=== PATIENT | female | born 1935 | race Caucasian/White ===

== ENCOUNTER 2019-05-13 10:27 | Observation (INO) | payer OTHER ==
[2019-05-13 11:52] LABS: Absolute Lymphocytes (CBC) 1.6 K/uL (0.7-4.9); Basophils % 0.9 % (0-1.3); Hematocrit 42.2 % (36.0-45.0); Lymphocytes % 20.9 % (15.3-44.8); MPV 8.4 fL (7.6-11.3); Protime INR 1.02; RBC Red Blood Cell Count 4.78 M/uL (3.86-4.86)
[2019-05-13 12:11] LABS: Urine Blood NEGATIVE (NEG); Urine Glucose NEGATIVE (NEG); Urine Protein NEGATIVE (NEG); Urine Specific Gravity 1.015 (1.005-1.030)
--- NOTE | 2019-05-13 12:20 | RAD REPORT ---
EXAM DESCRIPTION: [place] Single View05/13/2019 12:01 pm CLINICAL HISTORY: cough COMPARISON: 2013 FINDINGS: The lungs appear clear of acute infiltrate. The heart is mildly enlarged. Aorta is tortuous/ectatic IMPRESSION: No acute abnormalities displayed
[2019-05-13 12:38] LABS: ALT/SGPT 26 U/L (12-78); AST/SGOT 19 U/L (15-37); Albumin 3.6 g/dL (3.4-5.0); Alkaline Phosphatase 30 U/L (45-117); BUN Blood Urea Nitrogen 14 mg/dL (7-18); Bicarbonate 33 mmol/L (21-32); Bilirubin Direct 0.2 mg/dL (0-0.2); Bilirubin Total 0.6 mg/dL (0.2-1.0); Glucose Level 97 mg/dL (74-106); Magnesium 2.1 mg/dL (1.8-2.4); NT PRO-BNP 397 pg/mL (<450); Potassium 4.2 mmol/L (3.5-5.1); Protein, Total 7.5 g/dL (6.4-8.2); Sodium Level 143 mmol/L (136-145); Troponin (Emerg Dept Use Only) < 0.02 ng/mL (0.0-0.045)
[2019-05-13] MEDS ORDERED: AMLODIPINE 5 MG TAB ONE (12:38)
[2019-05-13] MEDS ORDERED: HYDRALAZINE HCL 20 MG/ML VIAL ONE ×2 (12:38→16:55)
--- NOTE | 2019-05-13 12:43 | EDPHYS ---
Physician Documentation [facility] Name: Ольга Cantrell Age: 83 yrs Sex: Female : 1935 Arrival Date: 05/13/2019 Time: 10:28 Bed 27 Private MD: Maggie Smith R ED Physician Parmjit Henderson HPI: 05/13 12:34 This 83 yrs old Female presents to ER via Ambulatory with complaints of High kylah Blood Pressure. 12:34 The patient has elevated blood pressure and discovered this at home. Onset: The kylah symptoms/episode began/occurred 3 day(s) ago. Modifying factors: The symptoms are aggravated by activity, The symptoms are alleviated by remaining still. Associated signs and symptoms: The patient has no apparent associated signs or symptoms. Severity of symptoms: At its worst the blood pressure was mild, in the emergency department the blood pressure is unchanged. The patient has experienced similar episodes in the past, a few times. Historical: - Allergies: 10:38 Sulfa (Sulfonamide Antibiotics); hb - Home Meds: 10:38 lisinopril 40 mg Oral tab 1 tab twice a day [Active]; Coreg 3.125 mg Oral tab 1 tab hb daily [Active]; bumetanide 1 mg Oral tab 1 tab once daily [Active]; Fish Oil oral oral [Active]; Xanax 0.5 mg oral tab [Active]; Vitamin D3 oral oral [Active]; Vitamin K Sub-Q [Active]; - PMHx: 11:28 Hypertension; tw2 - PSHx: 10:38 Cholecystectomy; Hysterectomy; back sx; leaky aortic valve; Bladder suspension; hb pancreatic duct stent; adhesion removal; - Immunization history:: Adult Immunizations up to date. - Social history:: Smoking status: Patient/guardian denies using tobacco. - Ebola Screening: : No symptoms or risks identified at this time. - Family history:: not pertinent. ROS: 12:34 Constitutional: Negative for fever, chills, and weight loss, Eyes: Negative for injury, kylah pain, redness, and discharge, ENT: Negative for injury, pain, and discharge, Neck: Negative for injury, pain, and swelling, Respiratory: Negative for shortness of breath, cough, wheezing, and pleuritic chest pain, Abdomen/GI: Negative for abdominal pain, nausea, vomiting, diarrhea, and constipation, Back: Negative for injury and pain, : Negative for injury, bleeding, discharge, and swelling, MS/Extremity: Negative for injury and deformity, Skin: Negative for injury, rash, and discoloration, Neuro: Negative for headache, weakness, numbness, tingling, and seizure, Psych: Negative for depression, anxiety, suicide ideation, homicidal ideation, and hallucinations, Allergy/Immunology: Negative for hives, rash, and allergies, Endocrine: Negative for neck swelling, polydipsia, polyuria, polyphagia, and marked weight changes, Hematologic/Lymphatic: Negative for swollen nodes, abnormal bleeding, and unusual bruising. 12:34 Cardiovascular: Positive for chest pain, of the chest. Exam: 12:34 Constitutional: This is a well developed, well nourished patient who is awake, alert, kylah and in no acute distress. Head/Face: Normocephalic, atraumatic. Eyes: Pupils equal round and reactive to light, extra-ocular motions intact. Lids and lashes normal. Conjunctiva and sclera are non-icteric and not injected. Cornea within normal limits. Periorbital areas with no swelling, redness, or edema. ENT: Nares patent. No nasal discharge, no septal abnormalities noted. Tympanic membranes are normal and external auditory canals are clear. Oropharynx with no redness, swelling, or masses, exudates, or evidence of obstruction, uvula midline. Mucous membranes moist. Neck: Trachea midline, no thyromegaly or masses palpated, and no cervical lymphadenopathy. Supple, full range of motion without nuchal rigidity, or vertebral point tenderness. No Meningismus. Chest/axilla: Normal chest wall appearance and motion. Nontender with no deformity. No lesions are appreciated. Cardiovascular: Regular rate and rhythm with a normal S1 and S2. No gallops, murmurs, or rubs. Normal PMI, no JVD. No pulse deficits. Respiratory: Lungs have equal breath sounds bilaterally, clear to auscultation and percussion. No rales, rhonchi or wheezes noted. No increased work of breathing, no retractions or nasal flaring. Abdomen/GI: Soft, non-tender, with normal bowel sounds. No distension or tympany. No guarding or rebound. No evidence of tenderness throughout. Back: No spinal tenderness. No costovertebral tenderness. Full range of motion. Skin: Warm, dry with normal turgor. Normal color with no rashes, no lesions, and no evidence of cellulitis. MS/ Extremity: Pulses equal, no cyanosis. Neurovascular intact. Full, normal range of motion. Neuro: Awake and alert, GCS 15, oriented to person, place, time, and situation. Cranial nerves II-XII grossly intact. Motor strength 5/5 in all extremities. Sensory grossly intact. Cerebellar exam normal. Normal gait. Psych: Awake, alert, with orientation to person, place and time. Behavior, mood, and affect are within normal limits. Vital Signs: 10:38 BP 203 / 103; Pulse 63; Resp 16; Temp 98.3; Pulse Ox 100% on R/A; Weight 83.91 kg; hb Height 5 ft. 4 in. (162.56 cm); Pain 09/05; 11:31 BP 169 / 112; Pulse 59; Resp 14; Pulse Ox 97% on R/A; tw2 12:02 BP 211 / 100; Pulse 58; Resp 17; Pulse Ox 98% on R/A; tw2 13:13 BP 184 / 97; Pulse 72; Resp 19; Pulse Ox 99% on R/A; tw2 13:44 BP 180 / 87; Pulse 76; Resp 16; Pulse Ox 98% ; lt1 10:38 Body Mass Index 31.75 (83.91 kg, 162.56 cm) hb 11:31 provider notified. tw2 MDM: 10:41 Patient medically screened. [facility] 05/13 11:05 Order name: Basic Metabolic Panel; Complete Time: 12:41 [facility] 05/13 11:05 Order name: CBC with Diff; Complete Time: 12:32 [facility] 05/13 11:05 Order name: LFT's; Complete Time: 12:41 [facility] 05/13 11:05 Order name: Magnesium; Complete Time: 12:41 [facility] 05/13 11:05 Order name: NT PRO-BNP; Complete Time: 12:41 [facility] 05/13 11:05 Order name: PT-INR; Complete Time: 12:32 [facility] 05/13 11:05 Order name: Troponin (emerg Dept Use Only); Complete Time: 12:41 [facility] 05/13 11:05 Order name: XRAY Chest (1 view); Complete Time: 12:32 [facility] 05/13 11:51 Order name: Urine Dipstick--Ancillary (enter results); Complete Time: 12:32 05/13 12:41 Order name: Urine Culture [facility] 05/13 11:05 Order name: EKG; Complete Time: 11:06 [facility] 05/13 11:05 Order name: Cardiac monitoring; Complete Time: 11:47 [facility] 05/13 11:05 Order name: EKG - Nurse/Tech; Complete Time: 11:48 [facility] 05/13 11:05 Order name: IV Saline Lock; Complete Time: 11:47 [facility] 05/13 11:05 Order name: Labs collected and sent; Complete Time: 11:47 [facility] 05/13 11:05 Order name: O2 Per Protocol; Complete Time: 11:24 [facility] 05/13 11:05 Order name: O2 Sat Monitoring; Complete Time: 11:24 [facility] 05/13 11:05 Order name: Urine Dipstick-Ancillary (obtain specimen); Complete Time: 11:47 [facility] Administered Medications: 12:40 Drug: Norvasc 10 mg Route: PO; tw2 13:13 Follow up: Response: No adverse reaction tw2 12:42 Drug: hydrALAZINE 5 mg Route: IV; Rate: per protocol; Site: right antecubital; tw2 12:44 Follow up: Response: No adverse reaction tw2 12:44 Follow up: IV Status: Completed infusion tw2 12:58 Drug: Rocephin 1 grams Route: IV; Rate: per protocol; Site: right antecubital; tw2 13:03 Follow up: Response: No adverse reaction; IV Status: Completed infusion tw2 12:59 Drug: hydrALAZINE 10 mg Route: PO; tw2 13:13 Follow up: Response: No adverse reaction tw2 Disposition: 05/13/19 12:40 Hospitalization ordered by Shell Ramirez for Inpatient Admission. Preliminary diagnosis are Essential (primary) hypertension, Chest pain, unspecified, Thoracic aortic aneurysm, without rupture. - Bed requested for Telemetry/MedSurg (Inpatient). - Status is Inpatient Admission. tw2 - Condition is Fair. - Problem is new. - Symptoms have improved. UTI on Admission? Yes Signatures: Dispatcher [employer] EDMS Diana Nieves Corey, MD MD cha Baxter, Heather, RN RN hb Barrera, Tessa, RN RN tw2 Corrections: (The following items were deleted from the chart) 14:34 12:40 Hospitalization Ordered by Shell Ramirez MD for Inpatient Admission. Preliminary bd diagnosis is Essential (primary) hypertension; Chest pain, unspecified; Thoracic aortic aneurysm, without rupture. Bed requested for Telemetry/MedSurg (Inpatient). Status is Inpatient Admission. Condition is Fair. Problem is new. Symptoms have improved. UTI on Admission? Yes. kylah 16:13 14:34 05/13/2019 12:40 Hospitalization Ordered by Shell Ramirez MD for Inpatient tw2 Admission. Preliminary diagnosis is Essential (primary) hypertension; Chest pain, unspecified; Thoracic aortic aneurysm, without rupture. Bed requested for Telemetry/MedSurg (Inpatient). Status is Inpatient Admission. Condition is Fair. Problem is new. Symptoms have improved. UTI on Admission? Yes. bd
--- NOTE | 2019-05-13 12:43 | ER ---
Nurse's Notes [facility] Name: Ольга Cantrell Age: 83 yrs Sex: Female : 1935 Arrival Date: 05/13/2019 Time: 10:28 Bed 27 Private MD: Maggie Smith R Diagnosis: Essential (primary) hypertension;Chest pain, unspecified;Thoracic aortic aneurysm, without rupture Presentation: 05/13 10:34 Presenting complaint: Patient states: "My blood pressure has been running high and I hb have been feeling crazy and I always have chest pressure but I fell like it is worse today." Home BP 170/90. Transition of care: patient was not received from another setting of care. Onset of symptoms was May 13, 2019. Risk Assessment: Do you want to hurt yourself or someone else? Patient reports no desire to harm self or others. Initial Sepsis Screen: Does the patient meet any 2 criteria? No. Patient's initial sepsis screen is negative. Does the patient have a suspected source of infection? No. Patient's initial sepsis screen is negative. Care prior to arrival: None. 10:34 Method Of Arrival: Ambulatory hb 10:34 Acuity: NORM 3 hb Historical: - Allergies: 10:38 Sulfa (Sulfonamide Antibiotics); hb - Home Meds: 10:38 lisinopril 40 mg Oral tab 1 tab twice a day [Active]; Coreg 3.125 mg Oral tab 1 tab hb daily [Active]; bumetanide 1 mg Oral tab 1 tab once daily [Active]; Fish Oil oral oral [Active]; Xanax 0.5 mg oral tab [Active]; Vitamin D3 oral oral [Active]; Vitamin K Sub-Q [Active]; - PMHx: 11:28 Hypertension; tw2 - PSHx: 10:38 Cholecystectomy; Hysterectomy; back sx; leaky aortic valve; Bladder suspension; hb pancreatic duct stent; adhesion removal; - Immunization history:: Adult Immunizations up to date. - Social history:: Smoking status: Patient/guardian denies using tobacco. - Ebola Screening: : No symptoms or risks identified at this time. - Family history:: not pertinent. Screenin:28 Abuse screen: Denies threats or abuse. Nutritional screening: No deficits noted. tw2 Tuberculosis screening: No symptoms or risk factors identified. Fall Risk Secondary diagnosis (15 points) impaired mobility. Assessment: 10:40 General: Appears in no apparent distress. obese, well groomed, Behavior is calm, tw2 cooperative, appropriate for age. Pain: Denies pain. Neuro: Level of Consciousness is awake, alert, obeys commands, Oriented to person, place, time, situation. Cardiovascular: Heart tones S1 S2 Patient's skin is warm and dry. Respiratory: Airway is patent Respiratory effort is even, unlabored, Respiratory pattern is regular, symmetrical, Breath sounds are clear bilaterally. GI: No signs and/or symptoms were reported involving the gastrointestinal system. Abdomen is round non-distended, obese, Bowel sounds present X 4 quads. : No signs and/or symptoms were reported regarding the genitourinary system. EENT: No signs and/or symptoms were reported regarding the EENT system. Derm: No signs and/or symptoms reported regarding the dermatologic system. Skin is fragile, is thin. Musculoskeletal: Range of motion: intact in all extremities. 11:29 Reassessment: Patient appears in no apparent distress at this time. No changes from tw2 previously documented assessment. Patient and/or family updated on plan of care and expected duration. Pain level reassessed. Patient is alert, oriented x 3, equal unlabored respirations, skin warm/dry/pink. 12:28 Reassessment: provider at bedside at this time. Reassessment: Patient appears in no tw2 apparent distress at this time. No changes from previously documented assessment. Patient and/or family updated on plan of care and expected duration. Pain level reassessed. Patient is alert, oriented x 3, equal unlabored respirations, skin warm/dry/pink. 13:13 Reassessment: Patient appears in no apparent distress at this time. No changes from tw2 previously documented assessment. Patient and/or family updated on plan of care and expected duration. Pain level reassessed. Patient is alert, oriented x 3, equal unlabored respirations, skin warm/dry/pink. Vital Signs: 10:38 BP 203 / 103; Pulse 63; Resp 16; Temp 98.3; Pulse Ox 100% on R/A; Weight 83.91 kg; hb Height 5 ft. 4 in. (162.56 cm); Pain 09/05; 11:31 BP 169 / 112; Pulse 59; Resp 14; Pulse Ox 97% on R/A; tw2 12:02 BP 211 / 100; Pulse 58; Resp 17; Pulse Ox 98% on R/A; tw2 13:13 BP 184 / 97; Pulse 72; Resp 19; Pulse Ox 99% on R/A; tw2 13:44 BP 180 / 87; Pulse 76; Resp 16; Pulse Ox 98% ; lt1 10:38 Body Mass Index 31.75 (83.91 kg, 162.56 cm) hb 11:31 provider notified. tw2 ED Course: 10:28 Patient arrived in ED. as 10:29 Maggie Smith MD is Private Physician. as 10:36 Triage completed. hb 10:38 Arm band placed on. hb 10:38 Placed in gown. Bed in low position. Adult w/ patient. bed side commode at bedside as tw2 pt states "i have to go often because of this water pill im taking". ekg monitor on. Pulse ox on. NIBP on. Warm blanket given. 10:41 Tessa Barrera, CHERI is Primary Nurse. tw2 10:41 Parmjit Henderson MD is Attending Physician. kylah 11:38 Inserted saline lock: 22 gauge in right antecubital area, using aseptic technique. tw2 Blood collected. Missed attempt(s): 22 gauge in left antecubital area. by Tech. Alondra Bleeding controlled, band aid applied, catheter tip intact. Missed attempt(s): 22 gauge in left antecubital area. per Tech. Alondra Bleeding controlled, band aid applied, catheter tip intact. 11:53 EKG done, by traffic survey technician. reviewed by Parmjit Henderson MD. at1 12:07 XRAY Chest (1 view) In Process Unspecified. EDMS 12:39 Shell Ramirez MD is Hospitalizing Provider. kylah 15:30 No provider procedures requiring assistance completed. Patient admitted, IV remains in tw2 place. Administered Medications: 12:40 Drug: Norvasc 10 mg Route: PO; tw2 13:13 Follow up: Response: No adverse reaction tw2 12:42 Drug: hydrALAZINE 5 mg Route: IV; Rate: per protocol; Site: right antecubital; tw2 12:44 Follow up: Response: No adverse reaction tw2 12:44 Follow up: IV Status: Completed infusion tw2 12:58 Drug: Rocephin 1 grams Route: IV; Rate: per protocol; Site: right antecubital; tw2 13:03 Follow up: Response: No adverse reaction; IV Status: Completed infusion tw2 12:59 Drug: hydrALAZINE 10 mg Route: PO; tw2 13:13 Follow up: Response: No adverse reaction tw2 Outcome: 12:40 Decision to Hospitalize by Provider. kylah 15:30 Admitted to Med/surg accompanied by nurse, accompanied by tech, via wheelchair, room tw2 201, with chart, Report called to cheri stewart 15:30 Condition: stable 15:30 Instructed on the need for admit. 16:13 Patient left the ED. tw2 Signatures: Dispatcher [employer] EDMS Parmjit Henderson MD MD cha Martinez, Amelia as Gonzales, Amanda, cross enterprise integrator EKG Tat1 Rosy Roper RN RN Tessa Barrera RN RN tw2 Alondra Valdez lt1 Corrections: (The following items were deleted from the chart) 11:47 11:31 Pulse 59bpm; Resp 14bpm; Pulse Ox 97% RA; tw2 tw2
[2019-05-13] MEDS ORDERED: HYDRALAZINE HCL 10 MG TABLET ONE (12:54)
[2019-05-13] MEDS ORDERED: CEFTRIAXONE/SWI 1gm 1 GM/10 ML SYR ONE (12:54)
[2019-05-13 16:31] VITALS: BMI 30.9
[2019-05-13] MEDS ORDERED: HYDRALAZINE HCL 20 MG/ML VIAL IV PRN (16:43)
[2019-05-13] MEDS ORDERED: NITROGLYCERIN 0.4 MG/TAB SL PRN (16:43)
[2019-05-13] MEDS ORDERED: ACETAMINOPHEN 500 MG TAB PO PRN (16:43)
[2019-05-13] MEDS ORDERED: MORPHINE 2 MG/ML SYR IV PRN (16:43)
[2019-05-13] MEDS: ENOXAPARIN 40 MG/0.4 ML SQ SCH (17:01)
[2019-05-13] MEDS ORDERED: ALPRAZOLAM 0.5 MG TABLET PO SCH (21:00)
[2019-05-13] MEDS: LISINOPRIL 20 MG TAB PO SCH (22:40)
[2019-05-13] MEDS: CARVEDILOL 3.125 MG TAB PO SCH (22:41)
--- NOTE | 2019-05-14 03:03 | HP ---
Date of Admission: 05/13/2019 Code Status: Full. Chief Complaint: Chest pain, elevated blood pressure. History Of Present Illness: The patient is an 83-year-old female with past medical history of hypert ension, not well controlled; lymphedema, on Bumex, who has been in her usual state of health until se veral days prior to admission when the patient reports worsening blood pressure higher than usual. 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 Patient has been taking her medications faithfully and her medication was recently increased. She wa s to take 40 mg of lisinopril 3 times a day. Patient also reported some chest tightness, stating steven t there is an elephant sitting on her chest. Denies any shortness of breath, nausea, vomiting, diaph oresis, or palpitations. Patient's symptoms are constant, moderate, progressively worsening. Theref ore, she came into the ER. In the ER, her vital signs showed a blood pressure of 210/117. She was g iven hydralazine 5 mg IV, 10 mg p.o. and Norvasc. Blood pressure improved to the 170s. Patient was then referred for admission. When seen in the ER, she was awake, alert, oriented x3, in some mild di stress. Workup revealed negative troponin level. Kidney function was normal. White blood cell coun t was also normal. EKG did not show any acute changes. Her chest x-ray was clear. Past Medical History: Hypertension, chronic lymphedema. Past Surgical History: Cholecystectomy, hysterectomy, back surgery, knee surgery, leaky aortic valve , bladder suspension, history of stent in the pancreatic duct, adhesions removal. Allergies: SULFA DRUGS. Medications: List reviewed. Social History: Patient denies any tobacco use, alcohol use, or illicit drug use. Patient is indepe ndent in her activities of daily living. , lives at home. Does not use any assistive ambulat ory devices. Family History: Father had lung cancer and hypertension. Review of Systems: Ten-point system reviewed, negative except as per HPI. Physical Examination: Vital Signs: Blood pressure 203/103, pulse 63, respirations 16, temperature 98.3, O2 of 100% on room air. General: Awake, alert, oriented x3. Elderly female, in some mild distress due to pain. HEENT: Normocephalic, atraumatic. PERRLA. EOMI. Moist mucous membranes. Oropharynx is clear. Co njunctiva is anicteric. Neck: Supple. No JVD. Trachea midline. CV: S1, S2. Regular rate and rhythm. Peripheral pulses present. Respiratory: Moving air well bilaterally. No wheezing or stridor. No use of accessory muscles. Gastrointestinal: Abdomen is soft, nontender, nondistended. Positive bowel sounds. No guarding or rigidity. Extremities: No clubbing or cyanosis. Patient has chronic lymphedema of bilateral upper and lower e xtremities. No calf tenderness. Neuro: Cranial nerves 2 through 12 intact grossly. No focal neurological deficit. Speech is normal . Skin: No rashes. Normal skin turgor. Psych: Mood is okay. Affect is full. Insight and judgment are good. Laboratory Data: Sodium 143, potassium 4.2, chloride 104, CO2 of 33, BUN 14, creatinine 0.89, glucos e 97, calcium 9.5, magnesium 2.1. Troponin less than 0.02. BNP 397. WBC 7.7, H and H 14.6 and 42.2 , platelets 210. INR 1.02. UA, negative nitrite, trace leukocyte esterase. Urine culture pending. Chest x-ray shows no acute intrathoracic abnormality. Assessment: An 83-year-old female with: 1.Hypertensive emergency. Blood pressure in the 200s/100s, not well controlled at home. Patient st wright she was diagnosed with high blood pressure at age of 22 and does not recall any renal workup inc luding renal artery stenosis workup. Patient will require IV medications. We will start on hydralaz ine 10 mg IV q.4 p.r.n. to keep systolic around 180 to 160. May need to be placed on Cardene drip if not improving. In the ICU, patient does have end-organ damage with chest pain. We will continue to monitor closely. 2.Chest pain, likely related to above. Initial troponin is negative. Patient is still symptomatic. We will start on chest pain guidelines with nitroglycerin and morphine p.r.n. Consult Cardiology. Obtain echocardiogram. 3.Obesity. BMI of 31. 4.Chronic lymphedema. Continue Bumex. 5.History of thoracic aortic aneurysm. 6.Abnormal urinalysis, asymptomatic. We will follow up on culture. No antibiotics indicated at thi s time. 7.Deep vein thrombosis prophylaxis with Lovenox. Plan: Admit the patient to Med-Surg, place as inpatient. Length of stay greater than 2 midnights. CHELA Voice ID: [id number]
[2019-05-14 03:46] LABS: Absolute Lymphocytes (CBC) 1.7 K/uL (0.7-4.9); Hematocrit 40.4 % (36.0-45.0); Lymphocytes % 23.9 % (15.3-44.8); MPV 9.2 fL (7.6-11.3); RBC Red Blood Cell Count 4.57 M/uL (3.86-4.86)
[2019-05-14 03:49] LABS: Potassium 3.7 mmol/L (3.5-5.1)
[2019-05-14 06:18] VITALS: O2SAT 94
--- NOTE | 2019-05-14 07:28 | EKG ---
Test Date: 2019-05-13 Test Time: 11:37:17 Landscaping Crew Leader: ZENOBIA MEASUREMENT RESULTS: Intervals: Rate: 54 SD: 180 QRSD: 134 QT: 476 QTc: 451 [place]: P: 26 SD: 180 QRS: 95 T: 2 INTERPRETIVE STATEMENTS: Sinus bradycardia Right bundle branch block Possible Lateral infarct, age undetermined Abnormal ECG Compared to ECG 05/19/2014 15:00:27 T-wave abnormality no longer present Possible ischemia no longer present Myocardial infarct finding still present Electronically Signed On 05-14-19 07:25:46 CDT by Jefferson Felix
[2019-05-14] MEDS: LISINOPRIL 20 MG TAB PO SCH (08:31)
[2019-05-14] MEDS: ENOXAPARIN 40 MG/0.4 ML SQ SCH (08:31)
[2019-05-14] MEDS: CARVEDILOL 3.125 MG TAB PO SCH (08:32)
--- NOTE | 2019-05-14 08:54 | RAD REPORT ---
EXAM DESCRIPTION: CT - Angio Aorta For Dissection - 05/13/2019 10:26 pm CLINICAL HISTORY: . Chest pain COMPARISON: February 2019 CT abdomen TECHNIQUE: Computed tomography angiography of the chest, abdomen pelvis were obtained. 100 cc Isovue 370 was administered intravenously. Coronal and sagittal reconstruction were performed. MIP 3D reconstruction was performed All CT scans are performed using dose optimization technique as appropriate and may include automated exposure control or mA/KV adjustment according to patient size. FINDINGS: An aortic dissection is not seen. 4.6 centimeter aneurysm ascending thoracic aorta The celiac, SMA and LEE are patent . A lung consolidation is not present. A pericardial effusion is not seen. A pleural effusion is not n oted. Chronic pneumobilia Spleen, adrenals and kidneys demonstrate no significant abnormality. Soft tissue appears be present within the distal common bile duct. Diverticula stem from the colon. Mild stranding adjacent to the sigmoid colon Moderate anterior subluxation L4 on L5. Posterior fusion L5 and S1 IMPRESSION: Negative for an aortic dissection. 4.6 centimeter aneurysm ascending thoracic aorta There appears to be soft tissue within the distal common bile duct. It is recommended that the patien t have an MRI of the abdomen and MRCP for further evaluation Mild sigmoid diverticulitis
[2019-05-14] MEDS ORDERED: LISINOPRIL 20 MG TAB PO SCH (09:00)
[2019-05-14] MEDS ORDERED: HOME MED 1 EA UNK (Lisinopril [Zestril] 40 MG) PO SCH (09:00)
[2019-05-14] MEDS ORDERED: BUMETANIDE 1 MG TABLET PO SCH (09:00)
[2019-05-14] MEDS ORDERED: ASPIRIN EC 81 MG TAB PO SCH (09:00)
[2019-05-14] MEDS: LORAZEPAM 0.5 MG TABLET PO ONE ×2 (10:45→13:13)
--- NOTE | 2019-05-14 11:34 | ECHO ---
HEIGHT: 5 ft 3 in WEIGHT: 175 lb 0 oz DATE OF STUDY: 05/14/[address]: Shell Ramirez MD 2-DIMENSIONAL: YES M.MODE: YES DOPPLER: YES COLOR FLOW: YES TDS: NO PORTABLE: NO DEFINITY: NO BUBBLE STUDY: NO DIAGNOSIS: CHEST PAIN CARDIAC HISTORY: CATHERIZATION: NO SURGERY: NO PROSTHETIC VALVE: NO PACEMAKER: NO MEASUREMENTS (cm) DIASTOLIC (NORMALS) SYSTOLIC (NORMALS) IVSd 1.7 (0.6-1.2) LA Diam 3.2 (1.9-4.0) LVEF 77% LVIDd 3.7 (3.5-5.7) LVIDs 2.0 (2.0-3.5) %FS 45% LVPWd 1.1 (0.6-1.2) Ao Diam 3.3 (2.0-3.7) 2 DIMENSIONAL ASSESSMENT: RIGHT ATRIUM: NORMAL LEFT ATRIUM: NORMAL RIGHT VENTRICLE: NORMAL LEFT VENTRICLE: LEFT VENTRICULAR HYPERTROPHY TRICUSPID VALVE: NORMAL MITRAL VALVE: MITRAL ANNULAR CALCIFICATION PULMONIC VALVE: NORMAL AORTIC VALVE: SCLEROSIS PERICARDIAL EFFUSION: NONE AORTIC ROOT: NORMAL LEFT VENTRICULAR WALL MOTION: NORMAL. DOPPLER/COLOR FLOW: MODERATE AORTIC REGURGITATION. MILD TRICUSPID REGURGITATION. COMMENTS: MODERATE AORTIC REGURGITATION. MILD TRICUSPID REGURGITATION. LEFT VENTRICULAR HYPERTROPHY. NORMAL EJECTION FRACTION. MITRAL ANNULAR CALCIFICATION. AORTIC SCLEROSIS. NO STENOSIS. TECHNOLOGIST: YASMEEN LOONEY
--- NOTE | 2019-05-14 15:29 | RAD REPORT ---
EXAM DESCRIPTION: MRI - Cholangiogram - 05/14/2019 2:33 pm CLINICAL HISTORY: Epigastric pain, abnormal common bile duct, prior cholecystectomy COMPARISON: CT study May 13, MRCP October 2015 TECHNIQUE: Axial and coronal heavily T2 weighted sequences were obtained. Coronal T2 HASTE fat satur ation static and coronal multiplane reconstruction imaging generated and reviewed. Horizontal and sherif tical axis rotational views obtained using maximum intensity projection (MIP) protocol. FINDINGS: Filling defects are present within the lumen of the extrahepatic biliary tree. The periphe ral canales of the biliary tree are seen as intact. Extrinsic invasion into the biliary tree is not myranda pected. Extrahepatic biliary tree is prominent in diameter, not unexpected in a post cholecystectomy patient. Diameter is similar to the 1999 study. There is a 2 centimeter long filling defect in the common hepatic duct region and a small 6-7 mm filling defect in the midportion of the biliary tree. Intrahepatic biliary tree is not seen. The patient has known pneumobilia. There is tapering of the co mmon bile duct into the head of the pancreas. A similar pattern was seen in the 2016 MRCP study. Patient likely has choledocholithiasis, sludge and /or debris in the lumen of the extrahepatic biliary tree. This is potentially pneumobilia. A primary mass of the common bile duct is not suspected. IMPRESSION: Stones, sludge and/or debris in the lumen of the common bile duct. This is the correlate to the CT finding. Intrinsic mass of the wall of the bile duct is not suspected and no extrinsic invading mass suspected . Findings within the common bile duct are not felt to be substantially different from a remote 2016 [facility].
[2019-05-14 17:48] VITALS: BP 150/69; TEMP 97.6
--- NOTE | 2019-05-15 06:46 | DS ---
Date of Discharge: 05/14/2019 Consultants: Dr. Felix with Cardiology. Discharge Diagnoses: 1.Hypertensive emergency, resolved. 2.Chest pain. 3.Obesity, body mass index 31. 4.Chronic lymphedema. 5.History of thoracic aortic aneurysm. 6.Mixed hyperlipidemia. 7.Stones/sludge in the common bile duct. Hospital Course: The patient is an 83-year-old female with past medical history of uncontrolled hype rtension, obesity, chronic lymphedema, thoracic aortic aneurysm, comes in with chest pain. The patie nt had severely elevated blood pressure with systolic in the 200s for past several days. There was n o noncompliance of her medications. Patient was recently changed to lisinopril t.i.d.; however, her blood pressure was not well controlled. She comes in with chest pain. Blood pressure was 210/117. She was given hydralazine IV p.o. Blood pressure dropped to 170s, however, came back up to the 190s. She did not require any drips or ICU stay. She did respond again to IV hydralazine and Norvasc. T he patient is unable to tolerate higher doses of beta-laura due to her heart rate being low. Cardi ology was consulted due to the chest pain. Her cardiac enzymes were negative x2. However, 3rd enzym e was positive at 0.09. EKG did not show any ST elevation. Her lipid panel showed elevated triglyce rides, cholesterol, and LDL. Patient follows with Dr. Castillo. Echocardiogram was also done showed normal ejection fraction of 77%. She had moderate aortic regurgitation, mild tricuspid regurgitation , left ventricular hypertrophy and aortic sclerosis without stenosis and mitral annular calcification . Patient's chest pain improved with improvement in her blood pressure. Dr. Felix did not recomme nd any intervention at this time. Patient was recommended to follow up with her primary fishing rod marker with Dr. Castillo. On her CT aortic dissection which was done to rule out thoracic aneurysm rupture, there was no rupture. However, she did have some mild sigmoid diverticulitis and was found to have some soft tissue in the distal common bile duct, therefore, MRCP was done. Lipase was negative. MRC P showed stone sludge and/or debris in the lumen of the common bile duct. This is the correlated CT finding. Intrinsic mass of the wall of the bile duct is not suspected and no extrinsic invading mass was suspected. Patient was then cleared for discharge and sent home in a stable condition. Activity: As tolerated. Medications: As per medication reconciliation list. She will be started on Norvasc low dose and add lisinopril HCTZ to her regimen. Followup: Follow up with primary care physician in 2 to 3 days. Follow up with primary fishing rod marker , Dr. Castillo in 2 weeks. Follow up with primary GI in [place] in 2 weeks. Return to ER for worseni ng condition. Diet: Heart healthy. Activity: As tolerated. Physical Examination: General: Awake, alert and oriented x3. No acute distress. Elderly female, obese. CV: S1, S2. Respiratory: Moving air well bilaterally. Abdomen: Soft, nontender, nondistended. Positive bowel sounds. Extremities: No clubbing, cyanosis. Patient has peripheral edema. Neurologic: Nonfocal. SA/MODL Voice ID: [id number] Report ID: [id number]
--- NOTE | 2019-05-15 08:07 | CON ---
Date of Consultation: 05/14/[address] Ramirez on 05/13/2019. The patient was seen on 05/14/2019. Reason For Consultation: Hypertensive crisis. History Of Present Illness: Ms. Cantrell is an 83-year-old woman. She normally sees Dr. Castillo. S he has a history of hypertension, dyslipidemia, anxiety, and what sounds like an abdominal aortic ane urysm that he has been following. She has had some issues with her blood pressure. When her blood p ressure is fine she gets weak. She gets dizzy. She gets short of breath. She came in with a pressu re of 203/103. Denied any syncope. Denied any palpitations. Denied any chest pain. Denied any [place] or vomiting or diaphoresis. By the time I saw her she has already had blood work indicating a tr oponin of 0.09. Her triglycerides was 237. Her cholesterol was 207, LDL was 151. Past Medical History: As stated above. Allergies: INCLUDE SULFA. Review of Systems: Negative. Social History: Negative. Family History: Noncontributory. Medications: At home, include Xanax, Bumex, Coreg and according to her she takes lisinopril 40 three times a day and she also takes fish oil. Physical Examination: General: Ms. Cantrell appeared her stated age. She was in no acute distress. By the time I saw her pressure was 140/84 after receiving carvedilol, lisinopril, and hydralazine. She was hard of hearin g. She was in normal rhythm. HEENT: Negative. Neck: Supple. No bruit. Chest: Clear to auscultation and percussion. Cardiac: Revealed a regular rhythm and rate with an S4 gallop and an aortic sclerosis, murmur no rubs. Abdomen: Obese, but benign. Extremities: Revealed trace edema. Diagnostic Data: Stated earlier, EKG showed LVH. Chest x-ray was negative. Impression And Plan: 1.Hypertension, very poorly controlled. Blood pressure is 203/103. The patient sees Dr. Castillo. Personally, I would change her lisinopril to 40 mg with diuretic. Echocardiogram is pendin g. She may need a renal Doppler to rule out renal artery stenosis. Leave that up to Dr. Castillo as an outpatient. She can go home if her blood pressure is controlled and her echo is normal. 2.Dyslipidemia, on fish oil, poorly controlled. 3.Anxiety. 4.Abdominal aortic aneurysm, being followed by Dr. Castillo. JESSE/JOHNNY Voice ID: [id number] Report ID: [id number]
== END 2019-05-14 17:50 | disposition home or self-care (01) ==
LOC: ER 10:27 → INTOOBSV 13:14 → ERHOLD 13:14 → 2ND 15:15
PROVIDERS: ADMIT Family Medicine; ATTEND Family Medicine
DX: I16.1 Hypertensive emergency (principal); I10 Essential (primary) hypertension; R07.9 Chest pain, unspecified; I89.0 Lymphedema, not elsewhere classified; E78.2 Mixed hyperlipidemia; K80.50 Calculus of bile duct without cholangitis or cholecystitis without obstruction; I71.4 Abdominal aortic aneurysm, without rupture; E66.9 Obesity, unspecified; Z68.31 Body mass index [BMI] 31.0-31.9, adult
CPT/HCPCS: 93005; 93306; 87088; 85025 ×2; 87086; 80048 ×2; 36415; 83735; 85610; 80061; 80076; 81003; 84484 ×3; 83690; 83880; 71275; 74175; 71045; 74181; 94760 ×3; 96375; 96374; 99285; Q9967; J0360 ×2; J1650 ×2; J0696; G0378 ×3

== ENCOUNTER 2021-05-21 08:13 | Observation (INO) | payer OTHER ==
[2021-05-21 09:38] LABS: Protime INR 1.04
--- NOTE | 2021-05-21 09:50 | RAD REPORT ---
EXAM DESCRIPTION: RAD - Chest Single View - 05/21/2021 8:51 am CLINICAL HISTORY: CHEST PAIN Chest pain. COMPARISON: Chest Single View dated 05/13/2019; CHEST SINGLE VIEW dated 05/19/2014; CHEST PA AND LAT 2 VIEW dated 05/03/2001 FINDINGS: Portable technique limits examination quality. Small calcified granuloma is present in the left lung base laterally. The lungs are otherwise grossly clear. The heart is normal in size. No displaced fractures. IMPRESSION: No acute intrathoracic process suspected.
[2021-05-21 09:54] LABS: Absolute Lymphocytes (CBC) 1.2 K/uL (0.7-4.9); Basophils % 0.5 % (0-1.3); Hematocrit 37.4 % (36.0-45.0); MPV 7.4 fL (7.6-11.3); RBC Red Blood Cell Count 4.24 M/uL (3.86-4.86)
[2021-05-21 09:55] LABS: ALT/SGPT 23 U/L (12-78); AST/SGOT 12 U/L (15-37); Albumin 3.1 g/dL (3.4-5.0); Alkaline Phosphatase 23 U/L (45-117); BUN Blood Urea Nitrogen 14 mg/dL (7-18); Bicarbonate 29 mmol/L (21-32); Bilirubin Direct 0.1 mg/dL (0-0.2); Bilirubin Total 0.5 mg/dL (0.2-1.0); Glucose Level 100 mg/dL (74-106); Lipase 182 U/L (73-393); Magnesium 2.1 mg/dL (1.8-2.4); NT PRO-BNP 240 pg/mL (<450); Potassium 3.2 mmol/L (3.5-5.1); Protein, Total 6.5 g/dL (6.4-8.2); Sodium Level 136 mmol/L (136-145); Troponin (Emerg Dept Use Only) < 0.02 ng/mL (0.0-0.045)
[2021-05-21] MEDS ORDERED: ASPIRIN 81 MG CHEWABLE TABLET ONE (09:58)
[2021-05-21] MEDS ORDERED: NITROGLYCERIN 0.4 MG/TAB SL ONE (09:58)
--- NOTE | 2021-05-21 10:19 | RAD REPORT ---
EXAM DESCRIPTION: CT - Angio Aorta For Dissection - 05/21/2021 10:06 am CLINICAL HISTORY: Chest pain radiating to the back. chest pain radiated to back hx of Aortic Aneurysm COMPARISON: Angio Aorta For Dissection dated 05/13/2019; Cholangiogram dated 05/14/2019 TECHNIQUE: CT angiography of the aorta was performed with MIPs. All CT scans are performed using dose optimization technique as appropriate and may include automated exposure control or mA/KV adjustment according to patient size. FINDINGS: A left aortic arch is present with bovine branching pattern of the great vessels.Aneurysma l dilatation of the ascending thoracic aorta is unchanged since 2019 measuring approximately 4.8 cm i n maximum dimension. No aortic dissection is seen. The celiac axis, SMA, LEE and renal arteries are p atent. No evidence of pulmonary embolism. Benign calcified granuloma seen in the lingula. No focal pulmonary infiltrate evident. Cholecystectomy is identified with pneumobilia present.No liver mass seen.The spleen, pancreas, adren al glands and kidneys are within normal limits for arterial phase imaging. No bowel obstruction, free fluid or abscess.Trace pelvic free fluid. Moderate sigmoid diverticulosis is present without acute diverticulitis findings.No pathologic enlarged lymphadenopathy identified.Sm all air bubble is present in the urinary bladder. Postsurgical changes involve the lumbar spine with hardware in place. IMPRESSION: No acute aortic finding is demonstrated.Stable 4.8 cm aneurysm the ascending thoracic ao rta. Prominent sigmoid diverticulosis coli without diverticulitis. Small air bubble in the urinary bladder may indicate cystitis.
[2021-05-21] MEDS ORDERED: POTASSIUM CL SA 10 MEQ TAB PO ONE (10:52)
--- NOTE | 2021-05-21 10:54 | EDPHYS ---
Physician Documentation [facility] Name: Ольга Cantrell Age: 85 yrs Sex: Female : 1935 Arrival Date: 05/21/2021 Time: 08:15 Bed 6 Private MD: Roe Wood E ED Physician Luciana Martinez HPI: 05/21 09:28 This 85 yrs old Female presents to ER via Ambulatory with complaints of Chest ma2 Pain. 09:28 The patient or guardian reports chest pain that is located primarily in the substernal ma2 area. Onset: gradually, 1 day(s) ago. Associated signs and symptoms: Pertinent negatives: abdominal pain, headache, lower extremity swelling, nausea. Severity of pain: At its worst the pain was mild in the emergency department the pain is unchanged. The patient has experienced a previous episode. Historical: - Allergies: 08:29 Sulfa (Sulfonamide Antibiotics); ll1 - PMHx: 08:29 Hypertension; ll1 15:05 Diverticulitis; Pulmonary HTN; IBS; Pancreatitis; Aortic aneurysm; RLS; Lymphedema; sv - PSHx: 15:05 hysterectomy; Knee replacement; Back sx; Cholecystectomy; sv - Immunization history:: Client reports having NOT received the Covid vaccine. Flu vaccine status is unknown. - Social history:: Smoking status: Patient denies any tobacco usage or history of. - Family history:: not pertinent. ROS: 09:28 Constitutional: Negative for fever, chills, and weight loss. ma2 09:28 All other systems are negative. Exam: 09:28 Constitutional: This is a well developed, well nourished patient who is awake, alert, ma2 and in no acute distress. Head/Face: Normocephalic, atraumatic. Eyes: Pupils equal round and reactive to light, extra-ocular motions intact. Lids and lashes normal. Conjunctiva and sclera are non-icteric and not injected. Cornea within normal limits. Periorbital areas with no swelling, redness, or edema. ENT: Nares patent. No nasal discharge, no septal abnormalities noted. Tympanic membranes are normal and external auditory canals are clear. Oropharynx with no redness, swelling, or masses, exudates, or evidence of obstruction, uvula midline. Mucous membranes moist. Neck: Trachea midline, no thyromegaly or masses palpated, and no cervical lymphadenopathy. Supple, full range of motion without nuchal rigidity, or vertebral point tenderness. No Meningismus. Chest/axilla: Normal chest wall appearance and motion. Nontender with no deformity. No lesions are appreciated. Cardiovascular: Regular rate and rhythm with a normal S1 and S2. No gallops, murmurs, or rubs. Normal PMI, no JVD. No pulse deficits. Respiratory: Lungs have equal breath sounds bilaterally, clear to auscultation and percussion. No rales, rhonchi or wheezes noted. No increased work of breathing, no retractions or nasal flaring. Abdomen/GI: Soft, non-tender, with normal bowel sounds. No distension or tympany. No guarding or rebound. No evidence of tenderness throughout. Skin: Warm, dry with normal turgor. Normal color with no rashes, no lesions, and no evidence of cellulitis. MS/ Extremity: Pulses equal, no cyanosis. Neurovascular intact. Full, normal range of motion. Neuro: Awake and alert, GCS 15, oriented to person, place, time, and situation. Cranial nerves II-XII grossly intact. Motor strength 5/5 in all extremities. Sensory grossly intact. Cerebellar exam normal. Normal gait. Psych: Awake, alert, with orientation to person, place and time. Behavior, mood, and affect are within normal limits. Vital Signs: 08:30 BP 164 / 89; Pulse 88; Resp 17; Temp 97.9; Pulse Ox 97% on R/A; Weight 86.18 kg; Height ll1 5 ft. 2 in. (157.48 cm); Pain 8/10; 09:30 BP 120 / 69; Pulse 61; Resp 17; Pulse Ox 99% ; sv 10:10 BP 130 / 66; Pulse 73; Resp 16; Pulse Ox 99% ; sv 16:15 BP 123 / 84; Pulse 77; Resp 18; Pulse Ox 98% on 2 lpm NC; ch5 08:30 Body Mass Index 34.75 (86.18 kg, 157.48 cm) ll1 MDM: 08:40 Patient medically screened. ma2 09:28 Differential diagnosis: abnormal EKG, acute myocardial infarction, acute pericarditis, ma2 anxiety, coronary artery disease chest wall pain, gastroesophageal reflux disease (GERD), stable angina, thoracic aortic disection. 10:53 HEART Score: History: Moderately Suspicious (1), ECG: Non specific repolarization ma2 disturbance / LBTB / PM (1), Age: > or = 65 years (2), Risk Factors: 1 or 2 risk factors (1), Troponin: < or = 1 x Normal Limit (0), Total Score = 5. The patient was given aspirin in the Emergency Department. Data reviewed: vital signs, nurses notes, EMS record, diagnostic data from outside facility, old medical records, lab test result(s), EKG, radiologic studies. Counseling: I had a detailed discussion with the patient and/or guardian regarding: the historical points, exam findings, and any diagnostic results supporting the discharge/admit diagnosis, the presence of at least one elevated blood pressure reading (>120/80) during this emergency department visit, the need for outpatient follow up. Response to treatment: the patient's symptoms have markedly improved after treatment. 05/21 08:19 Order name: Basic Metabolic Panel [facility] 05/21 08:19 Order name: CBC with Diff [facility] 05/21 08:19 Order name: LFT's [facility] 05/21 08:19 Order name: Magnesium [facility] 05/21 08:19 Order name: NT PRO-BNP; Complete Time: 10:13 [facility] 05/21 08:19 Order name: PT-INR; Complete Time: 10:13 [facility] 05/21 08:19 Order name: Troponin (emerg Dept Use Only); Complete Time: 10:13 [facility] 05/21 08:20 Order name: Basic Metabolic Panel; Complete Time: 10:13 [facility] 05/21 08:20 Order name: CBC with Automated Diff; Complete Time: 10:32 [facility] 05/21 08:20 Order name: Liver (Hepatic) Function; Complete Time: 10:13 [facility] 05/21 08:20 Order name: Magnesium; Complete Time: 10:13 [facility] 05/21 09:34 Order name: Lipase; Complete Time: 10:13 [facility] 05/21 08:19 Order name: XRAY Chest (1 view); Complete Time: 10:13 [facility] 05/21 08:19 Order name: EKG; Complete Time: 08:20 [facility] 05/21 08:19 Order name: Cardiac monitoring; Complete Time: 08:41 [facility] 05/21 08:19 Order name: EKG - Nurse/Tech; Complete Time: 08:41 [facility] 05/21 08:19 Order name: IV Saline Lock; Complete Time: 08:44 [facility] 05/21 08:19 Order name: Labs collected and sent; Complete Time: 08:44 [facility] 05/21 08:19 Order name: O2 Per Protocol; Complete Time: 08:41 [facility] 05/21 08:19 Order name: O2 Sat Monitoring; Complete Time: 08:41 [facility] 05/21 09:10 Order name: Labs - recollect needed: recollect all the blood/ hemolyzed; Complete Time: eb 09:36 05/21 09:25 Order name: Angio Aorta For Dissection; Complete Time: 10:32 [facility] 05/21 10:24 Order name: SARS-COV-2 RT PCR; Complete Time: 10:32 [facility] 05/21 16:58 Order name: Troponin I EDMS Administered Medications: 09:42 Drug: Nitroglycerin 0.4 mg Route: Sublingual; sv 10:30 Drug: Aspirin Chewable Tablet 324 mg Route: PO; sv 10:30 Drug: Potassium Chloride Liquid 40 mEq Route: PO; sv Disposition: 09:40 Critical Care:. ma2 Disposition Summary: 05/21/21 10:53 Hospitalization Ordered Hospitalization Status: Observation ky2 Provider: Cornell Patton Condition: Stable ky2 Problem: new ma2 Symptoms: are unchanged ma2 Bed/Room Type: Standard ky2 Location: Telemetry/MedSurg (observation)(05/21/21 16:10) [facility] Room Assignment: [facility](05/21/21 16:10) [facility] Diagnosis - Chest pain, unspecified ma2 Forms: - Medication Reconciliation Form ma2 - SBAR form ma2 Critical care time excluding procedures: 09:40 Critical care time: Bedside Care: 20 minutes, Consultation: 10 minutes, Family ma2 Intervention: 5 minutes. Total time: 35 minutes Signatures: Dispatcher [employer] EDHyun Hernandez RN RN sv Smirch, Shelby, RN RN Michael Bonner RN RN Luciana Bryson MD MD ky2 Tasia Stock Lynsay RN RN ll1 Corrections: (The following items were deleted from the chart) 09:25 09:07 Chest Angio+CT.RAD.BRZ ordered. EDMS EDMS 09:33 08:20 CORONAVIRUS+MR.LAB.BRZ ordered. EDMS EDMS 09:34 09:07 LIPASE+C.LAB.BRBarbara ordered. EDMS EDMS 13:17 10:53 [facility] 13:22 10:53 Telemetry/MedSurg (observation) ky2 13:22 13:[address] [place] [address] 15:08 13:22 sv 16:10 13:22 [facility] ER HOLD ss ja 16:10 15:08 ERHOLD- sv ja1
--- NOTE | 2021-05-21 10:54 | ER ---
Nurse's Notes [facility] Name: Ольга Cantrell Age: 85 yrs Sex: Female : 1935 Arrival Date: 05/21/2021 Time: 08:15 Bed 6 Private MD: Roe Wood E Diagnosis: Chest pain, unspecified Presentation: 05/21 08:30 Chief complaint: Patient states: Chest tightness for 2 days with SOB. No cough or ll1 fever. Coronavirus screen: Vaccine status: Patient reports being unvaccinated. Client denies travel out of the [place] in the last 14 days. difficulty breathing, shortness of breath, Client presents with at least one sign or symptom that may indicate coronavirus-19. Standard/surgical mask placed on the client. Ebola Screen: Patient denies travel to an Ebola-affected area in the 21 days before illness onset. Initial Sepsis Screen: Does the patient meet any 2 criteria? No. Patient's initial sepsis screen is negative. Does the patient have a suspected source of infection? No. Patient's initial sepsis screen is negative. Risk Assessment: Do you want to hurt yourself or someone else? Patient reports no desire to harm self or others. Onset of symptoms was May 20, 2021. 08:30 Method Of Arrival: Ambulatory ll1 08:30 Acuity: NORM 3 ll1 Historical: - Allergies: 08:29 Sulfa (Sulfonamide Antibiotics); ll1 - PMHx: 08:29 Hypertension; ll1 15:05 Diverticulitis; Pulmonary HTN; IBS; Pancreatitis; Aortic aneurysm; RLS; Lymphedema; sv - PSHx: 15:05 hysterectomy; Knee replacement; Back sx; Cholecystectomy; sv - Immunization history:: Client reports having NOT received the Covid vaccine. Flu vaccine status is unknown. - Social history:: Smoking status: Patient denies any tobacco usage or history of. - Family history:: not pertinent. Screenin:00 Abuse screen: Denies threats or abuse. Nutritional screening: No deficits noted. 5 Tuberculosis screening: No symptoms or risk factors identified. 15:00 Fall Risk None identified. 5 Vital Signs: 08:30 BP 164 / 89; Pulse 88; Resp 17; Temp 97.9; Pulse Ox 97% on R/A; Weight 86.18 kg; Height ll1 5 ft. 2 in. (157.48 cm); Pain 8/10; 09:30 BP 120 / 69; Pulse 61; Resp 17; Pulse Ox 99% ; sv 10:10 BP 130 / 66; Pulse 73; Resp 16; Pulse Ox 99% ; sv 16:15 BP 123 / 84; Pulse 77; Resp 18; Pulse Ox 98% on 2 lpm NC; ch5 08:30 Body Mass Index 34.75 (86.18 kg, 157.48 cm) ll1 ED Course: 08:15 Patient arrived in ED. mr 08:15 Roe Wood MD is Private Physician. mr 08:20 Luciana Martinez MD is Attending Physician. ma2 08:24 Arm band placed on Patient placed in an exam room, on a stretcher. ll1 08:31 Triage completed. ll1 08:41 Patient has correct armband on for positive identification. Placed in gown. Bed in low mh5 position. Call light in reach. Side rails up X 1. Adult w/ patient. Warm blanket given. Pillow given. air sampling and monitoring on. Pulse ox on. NIBP on. 08:41 EKG done, by ED staff, reviewed by Luciana Martinez MD COVID swab sent to lab. mh5 08:43 Elgin Billingsley, RN is Primary Nurse. ch5 08:44 Magnesium Sent. ch5 08:44 Basic Metabolic Panel Sent. ch5 08:44 CBC with Diff Sent. ch5 08:44 LFT's Sent. ch5 08:44 XRAY Chest (1 view) Sent. ch5 08:51 XRAY Chest (1 view) In Process Unspecified. EDMS 09:43 Missed attempt(s): 20 gauge in right antecubital area. Bleeding controlled, band aid sv applied, catheter tip intact. 09:51 Inserted saline lock: 20 gauge in left antecubital area, using aseptic technique. sv Flushed left antecubital with 2 ml normal saline. 10:06 Angio Aorta For Dissection In Process Unspecified. EDMS 10:11 Awaiting lab results, Awaiting radiology results. sv 10:53 Cornell Patton is Hospitalizing Provider. ma2 15:00 No provider procedures requiring assistance completed. Oxygen administration via nasal ch5 cannula \T\ 2L/min. Administered Medications: 09:42 Drug: Nitroglycerin 0.4 mg Route: Sublingual; sv 10:30 Drug: Aspirin Chewable Tablet 324 mg Route: PO; sv 10:30 Drug: Potassium Chloride Liquid 40 mEq Route: PO; sv Outcome: 10:53 Decision to Hospitalize by Provider. [email or web address] 15:00 Admitted to Med/surg via stretcher. 5 15:00 Condition: stable 17:04 Patient left the ED. sv Signatures: Dispatcher [employer] EDMS Hyun Mckeon RN RN Grant, [facility] Luciana Martinez MD MD or2 Olga Babin RN RN [facility] Elgin Billingsley RN RN 5 Corrections: (The following items were deleted from the chart) 09:33 09:06 CORONAVIRUS+ drawn and sent. [address] 15:08 09:51 Inserted saline lock: 20 gauge in left antecubital area, using aseptic technique. sv Flushed left antecubital with 1 ml Heparin flush sv
--- NOTE | 2021-05-21 12:25 | P.HP ---
Certification for Inpatient Patient admitted to: Inpatient With expected LOS: >2 Midnights Patient will require the following post-hospital care: None Practitioner: I am a practitioner with admitting privileges, knowledge of patient current condition, hospital course, and medical plan of care. Services: Services provided to patient in accordance with Admission requirements found in Title 42 Section 412.3 of the Code of Federal Regulations Patient History Date of Service: 05/21/21 Primary Care Provider: Dr. Chauhan Reason for admission: Atypical chest pain History of Present Illness: Chest Single View - 05/21/2021 8:51 am CLINICAL HISTORY: CHEST PAIN Chest pain. COMPARISON: Chest Single View dated 05/13/2019; CHEST SINGLE VIEW dated 05/19/2014; CHEST PA AND LAT 2 VIEW dated 05/03/2001 FINDINGS: Small calcified granuloma is present in the left lung base laterally. The lungs are otherwise grossly clear. The heart is normal in size. No displaced fractures. IMPRESSION: No acute intrathoracic process suspected. CT - Angio Aorta For Dissection - 05/21/2021 10:06 am CLINICAL HISTORY: Chest pain radiating to the back. Hx of Aortic Aneurysm COMPARISON: Angio Aorta For Dissection dated 05/13/2019; Cholangiogram dated 05/14/2019 FINDINGS: A left aortic arch is present with bovine branching pattern of the great vessels.Aneurysmal dilatation of the ascending thoracic aorta is unchanged since 2019 measuring approximately 4.8 cm in maximum dimension. No aortic dissection is seen. The celiac axis, SMA, LEE and renal arteries are patent. No evidence of pulmonary embolism. Benign calcified granuloma seen in the lingula. No focal pulmonary infiltrate evident. Cholecystectomy is identified with pneumobilia present.No liver mass seen.The spleen, pancreas, adrenal glands and kidneys are within normal limits for arterial phase imaging. No bowel obstruction, free fluid or abscess.Trace pelvic free fluid. Moderate sigmoid diverticulosis is present without acute diverticulitis findings.No pathologic enlarged lymphadenopathy identified.Small air bubble is present in the urinary bladder. Postsurgical changes involve the lumbar spine with hardware in place. IMPRESSION: No acute aortic finding is demonstrated.Stable 4.8 cm aneurysm the ascending thoracic aorta. Prominent sigmoid diverticulosis coli without diverticulitis. Small air bubble in the urinary bladder may indicate cystitis. Patient is an 85-year-old female with a history of aortic aneurysm. The patient states that she frequently has a sensation of pressure in her left chest but yesterday she developed a sensation of pressure that was unlike previous episodes. Both the location, mid chest under the sternum, and the intensity of the sensation were unlike previous episodes. She waited a day to see if it would pass And then came to the emergency room. She states that the discomfort was like having an elephant stand on her chest. Patient's labs are unremarkable. Covid was negative, troponin was negative, BNP was 240. It was noted that the patient's GFR was 56. Both lipase and magnesium were within normal limits. Allergies Sulfa (Sulfonamide Antibiotics) Allergy (Verified 05/13/19 16:18) Nausea/Vomiting Home medications list reviewed: Yes Home Medications: ALPRAZolam [Xanax*] 0.5 mg PO BEDTIME 05/13/19 Bumetanide [Bumex*] 1 mg PO DAILY 05/13/19 Cholecalciferol (Vitamin D3) [Vitamin D3] 5,000 unit PO DAILY 05/13/19 Docosahexanoic AC/Epa [Fish Oil 1,000 MG*] 1,000 mg PO DAILY 05/13/19 Vitamin B Complex [Vitamin B Complex*] 1 cap PO DAILY 05/13/19 carvediloL [Coreg*] 3.125 mg PO BID 05/13/19 Amlodipine [Norvasc] 5 mg PO DAILY #30 tab 05/14/19 Lisinopril/Hydrochlorothiazide [Lisinopril-Hctz 20-12.5 mg Tab] 1 each PO BID #60 tablet 05/14/19 - Past Medical/Surgical History Diabetic: No -: Hypertension -: Diverticulitis -: Pulmonary Hypertension -: IBS -: Pancreatitis -: Aortic Aneurism -: Restless leg syndrome -: Lymphadema -: Low Back Pain -: Hysterectomy -: Knee replacement -: Back SX -: Gallbladder removal Psychosocial/ Personal History: 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 - Family History Mother -: Lung disease Father -: Hypertension, Cancer Notes: lung Sister -: Heart disease - Social History Smoking Status: Never smoker Alcohol use: No CD- Drugs: No Caffeine use: Yes Place of Residence: Home Review of Systems 10-point ROS is otherwise unremarkable General: Unremarkable Eyes: Unremarkable ENT: Unremarkable Respiratory: Unremarkable Cardiovascular: As per HPI (Chest Tightness and pressure) Gastrointestinal: Unremarkable Genitourinary: Unremarkable Musculoskeletal: Back Pain Neurological: Unremarkable Physical Examination - Physical Exam General: Alert, Oriented x3, Cooperative HEENT: Atraumatic, Normocephalic, PERRLA Neck: Supple, JVD not distended Respiratory: Clear to auscultation bilaterally, Normal air movement Cardiovascular: No edema, Normal S1 S2, Irregular heart rate/rhythm (SR with ectopy) Capillary refill: Brisk Gastrointestinal: Normal bowel sounds, Soft and benign, Non-distended Musculoskeletal: No clubbing, No swelling, No contractures Integumentary: No rashes, No breakdown, No significant lesion, Other (Bilateral lymphodema) Neurological: Normal speech, Normal strength at 5/5 x4 extr, Normal tone - Studies Laboratory Data (last 24 hrs) 05/21/21 09:25: PT 12.0, INR 1.04 05/21/21 09:25: WBC 5.90, Hgb 12.5, Hct 37.4, Plt Count 261 05/21/21 09:25: Sodium 136, Potassium 3.2 L, BUN 14, Creatinine 0.95, Glucose 100, Magnesium 2.1, Total Bilirubin 0.5, AST 12 L, ALT 23, Alkaline Phosphatase 23 L, Lipase 182 05/21/21 09:06: Lipase Cancelled Assessment and Plan - Plan Assessment: Atypical chest pressure Aortic aneurysm Hypertension Low back pain Lymphedema Restless leg syndrome Pancreatitis IBS Pulmonary hypertension Plan: Atypical chest pressure: Cardiology referral, troponin, CBC, CMP, lipid, TSH, T4, on telemetry. Aortic aneurysm: No change from past imaging. Hypertension: Hypertensive medications in the hospital. Low back pain: Tylenol for mild pain, Sherwood 5 for significant pain Lymphedema: Chronic stable condition. Restless leg syndrome: Chronic stable condition. Pancreatitis: Intermittent condition, no difficulty at this time. IBS: Intermittent problem, no difficulty at this time. Pulmonary hypertension: Currently asymptomatic treated by Dr. Ward DVT PPx:Lovenox 40mg SQ CODE STATUS: Full Code Discharge Plan: Home Plan to discharge in: 48 Hours - Advance Directives Does patient have a Living Will: No Does patient have a Durable POA for Healthcare: No - Code Status/Comfort Care Code Status Assessed: Yes Code Status: Full Code Time Spent Managing Pts Care (In Minutes): 70
[2021-05-21] MEDS ORDERED: ONDANSETRON 4 MG/2 ML VIAL IV PRN (13:36)
[2021-05-21] MEDS ORDERED: ALPRAZOLAM 0.25 MG TABLET PO PRN (13:36)
[2021-05-21] MEDS ORDERED: ACETAMINOPHEN 500 MG TAB PO PRN (13:36)
[2021-05-21] MEDS ORDERED: HYDROCODONE/APAP 5/325 MG TAB PO PRN (13:36)
[2021-05-21 15:04] VITALS: BMI 34.7
[2021-05-21 17:09] LABS: Thyroid Stimulating Hormone 0.807 uIU/mL (0.360-3.740)
[2021-05-21] MEDS ORDERED: LABETALOL 20 MG/4ML SYRINGE IV PRN (18:30)
[2021-05-21 19:45] LABS: Urine Appearance CLEAR (Clear); Urine Bilirubin NEGATIVE (Negative); Urine Blood NEGATIVE (Negative); Urine Color YELLOW (Yellow); Urine Glucose NEGATIVE (Negative); Urine Protein NEGATIVE (Negative); Urine Specific Gravity >=1.030 (1.005-1.030); Urine Urobilinogen 0.2 mg/dL (0.2-1.0); Urine pH 8.5 (5.0-7.0)
[2021-05-21 20:04] LABS: Urine Microscopic Reflex ORDER UMIC
[2021-05-21 20:17] LABS: Urine Bacteria 20-50 /HPF (<20); Urine RBC <5 /HPF (NONE SEEN); Urine Triple Phosphate Crystal FEW (NONE SEEN)
[2021-05-22] MEDS ORDERED: carvediloL 3.125 MG TAB PO SCH (06:00)
[2021-05-22 06:16] LABS: Absolute Lymphocytes (CBC) 1.6 K/uL (0.7-4.9); Basophils % 0.4 % (0-1.3); Hematocrit 36.3 % (36.0-45.0); Lymphocytes % 26.1 % (15.3-44.8); MPV 7.1 fL (7.6-11.3); RBC Red Blood Cell Count 4.12 M/uL (3.86-4.86)
[2021-05-22 06:33] LABS: Bilirubin Total 0.4 mg/dL (0.2-1.0); Potassium 3.6 mmol/L (3.5-5.1); Protein, Total 6.1 g/dL (6.4-8.2)
[2021-05-22] MEDS ORDERED: lisinopriL 20 MG TAB PO SCH (09:00)
[2021-05-22] MEDS ORDERED: AMLODIPINE 5 MG TAB PO SCH (09:00)
[2021-05-22] MEDS ORDERED: ENOXAPARIN 40 MG/0.4 ML SQ SCH (09:00)
[2021-05-22] MEDS ORDERED: hydroCHLOROthiazide 12.5 MG CAP PO SCH (09:00)
[2021-05-22] MEDS ORDERED: BUMETANIDE 1 MG TABLET PO SCH (09:00)
[2021-05-22 10:13] VITALS: TEMP 97.3
[2021-05-22 11:04] VITALS: O2SAT 98
--- NOTE | 2021-05-22 12:13 | P.DS ---
Admission Date: 05/21/21 Discharge Date: 05/22/21 Primary Care Provider: Dr. Chauhan Disposition: ROUTINE DISCHARGE Reason for Admission: Atypical chest pain - Problems (1) Chest pain Current Visit: Yes Status: Acute (2) History of aortic aneurysm Current Visit: Yes Status: Acute (3) Hypertension Current Visit: Yes Status: Acute Brief History of Present Illness: 85-year-old female with a history of aortic aneurysm. She presented to the ED due to a sensation of pressure in her chest. She waited a day to see if i her symptoms would resolve. It got worse and she came to the ED. She states that the discomfort was like having an elephant stand on her chest. Patient's labs in the ED were unremarkable. Covid was negative, troponin was negative, BNP was 240. It was noted that the patient's GFR was 56. CT disse ction did not show any change in size of her thoracic aneurism. Patient placed under observation for chest pain rule out. Hospital Course: Patient placed under observation on the medical floor. Troponin trended negative. She was chest pain-free during the hospital stay. Her blood pressure was initially high in the ED but she was normotensive on the floor. Patient is currently asymptomatic. ACS ruled out. No thoracic aneurism. She reports episodes of heart fluttering at home. Patient stated she follows with cardiology who had her wear a Holter monitor. Patient may need any event monitor. She is discharged to follow with her counter manager for further evaluation. Vital Signs/Physical Exam: Temp Pulse Resp BP Pulse Ox 97.3 F 62 18 127/62 98 05/22/21 08:00 05/22/21 09:40 05/22/21 08:00 05/22/21 09:40 05/22/21 08:00 General: Alert, In no apparent distress, Oriented x3 HEENT: Mucous membr. moist/pink Neck: JVD not distended Respiratory: Clear to auscultation bilaterally, Normal air movement Cardiovascular: No edema, Regular rate/rhythm, Normal S1 S2 Gastrointestinal: Soft and benign, Non-distended, No tenderness Musculoskeletal: No swelling Integumentary: No rashes, No cyanosis Neurological: Normal strength at 5/5 x4 extr Laboratory Data at Discharge: WBC 6.20 K/uL (4.3-10.9) 05/22/21 05:29 Hgb 12.6 g/dL (12.0-15.0) 05/22/21 05:29 Hct 36.3 % (36.0-45.0) 05/22/21 05:29 Plt Count 246 K/uL (152-406) 05/22/21 05:29 PT 12.0 SECONDS (9.5-12.5) 05/21/21 09:25 INR 1.04 05/21/21 09:25 Sodium 138 mmol/L (136-145) 05/22/21 05:29 Potassium 3.6 mmol/L (3.5-5.1) 05/22/21 05:29 BUN 20 mg/dL (7-18) H 05/22/21 05:29 Creatinine 0.96 mg/dL (0.55-1.3) 05/22/21 05:29 Glucose 93 mg/dL (74-106) 05/22/21 05:29 Magnesium 2.1 mg/dL (1.8-2.4) 05/21/21 09:25 Total Bilirubin 0.4 mg/dL (0.2-1.0) 05/22/21 05:29 AST 16 U/L (15-37) 05/22/21 05:29 ALT 20 U/L (12-78) 05/22/21 05:29 Alkaline Phosphatase 23 U/L (45-117) L 05/22/21 05:29 Troponin I < 0.02 ng/mL (0.0-0.045) 05/21/21 22:07 Triglycerides 176 mg/dL (<150) H 05/22/21 05:29 Cholesterol 197 mg/dL (<200) 05/22/21 05:29 HDL Cholesterol 44 mg/dL (40-60) 05/22/21 05:29 Cholesterol/HDL Ratio 4.48 05/22/21 05:29 Lipase 182 U/L (73-393) 05/21/21 09:25 Home Medications: Bumetanide [Bumex*] 1 mg PO DAILY 05/13/19 Cholecalciferol (Vitamin D3) [Vitamin D3] 5,000 unit PO DAILY 05/13/19 Vitamin B Complex [Vitamin B Complex*] 1 cap PO DAILY 05/13/19 carvediloL [Coreg*] 3.125 mg PO DAILY 05/13/19 Amlodipine [Norvasc*] 5 mg PO DAILY #30 tab 05/14/19 Lisinopril [Zestril] 20 mg PO BID 05/21/21 Followup: Colt Chauhan MD [Primary Care Provider] -
[2021-05-22 12:35] VITALS: BP 104/70
== END 2021-05-22 13:00 | disposition home or self-care (01) ==
LOC: ER 08:13 → ERHOLD 12:44 → INTOOBSV 12:44 → 2ND 16:46
PROVIDERS: ADMIT Internal Medicine; ATTEND Internal Medicine
DX: R07.89 Other chest pain (principal); I71.4 Abdominal aortic aneurysm, without rupture; I10 Essential (primary) hypertension; M54.5 Low back pain; I89.0 Lymphedema, not elsewhere classified; G25.81 Restless legs syndrome; K85.90 Acute pancreatitis without necrosis or infection, unspecified; K58.9 Irritable bowel syndrome, unspecified; I27.20 Pulmonary hypertension, unspecified; K57.30 Diverticulosis of large intestine without perforation or abscess without bleeding; Z20.822 Contact with and (suspected) exposure to COVID-19; Z88.2 Allergy status to sulfonamides; Z90.710 Acquired absence of both cervix and uterus; Z90.49 Acquired absence of other specified parts of digestive tract; Z82.49 Family history of ischemic heart disease and other diseases of the circulatory system; Z83.6 Family history of other diseases of the respiratory system; Z80.9 Family history of malignant neoplasm, unspecified
CPT/HCPCS: 93005; 87088; 85025 ×2; 87086; 80048; 36415; 83735; 85610; 80061; 82565; 80076; 84443; 84484 ×3; 84439; 83690; 80053; 83880; 71275; 74175; 71045; 99285; U0003; Q9967; J1650; G0378 ×3; 81003; 81015

== ENCOUNTER 2021-05-26 20:07 | Observation (INO) | payer OTHER ==
--- NOTE | 2021-05-26 21:37 | RAD REPORT ---
EXAM DESCRIPTION: [place] Single View05/26/2021 9:18 pm CLINICAL HISTORY: Chest pain COMPARISON: May 21, 2001 FINDINGS: The lungs appear clear of acute infiltrate. The heart is mildly enlarged. No obvious change in the ascending thoracic aortic aneurysms
[2021-05-26 21:50] LABS: Absolute Lymphocytes (CBC) 1.7 K/uL (0.7-4.9); Basophils % 0.5 % (0-1.3); Hematocrit 38.2 % (36.0-45.0); Lymphocytes % 20.1 % (15.3-44.8); MPV 7.5 fL (7.6-11.3); RBC Red Blood Cell Count 4.33 M/uL (3.86-4.86)
[2021-05-26 22:00] LABS: Protime INR 2.43
[2021-05-26 22:16] LABS: ALT/SGPT 24 U/L (12-78); AST/SGOT 19 U/L (15-37); Albumin 3.2 g/dL (3.4-5.0); Alkaline Phosphatase 27 U/L (45-117); BUN Blood Urea Nitrogen 24 mg/dL (7-18); Bicarbonate 31 mmol/L (21-32); Bilirubin Direct < 0.1 mg/dL (0-0.2); Bilirubin Total 0.4 mg/dL (0.2-1.0); Glucose Level 111 mg/dL (74-106); Magnesium 2.2 mg/dL (1.8-2.4); NT PRO-BNP 339 pg/mL (<450); Potassium 3.6 mmol/L (3.5-5.1); Protein, Total 6.7 g/dL (6.4-8.2); Sodium Level 142 mmol/L (136-145); Troponin (Emerg Dept Use Only) < 0.02 ng/mL (0.0-0.045)
--- NOTE | 2021-05-26 22:20 | ER ---
Nurse's Notes [facility] Name: Ольга Cantrell Age: 85 yrs Sex: Female : 1935 Arrival Date: 05/26/2021 Time: 20:09 Bed 15 Private MD: Diagnosis: Chest pain, unspecified Presentation: 05/26 20:28 Chief complaint: Patient states: Pt was hospitalized this past weekend for Chest pain. vg1 Pt states Dr Castillo told her to come into ED to be evaluated. 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 Pt has CASSIUS lower extremity swelling, pt stated 'that's normal'. Coronavirus screen: Vaccine status: Patient reports being unvaccinated. Ebola Screen: Patient negative for fever greater than or equal to 101.5 degrees Fahrenheit, and additional compatible Ebola Virus Disease symptoms. Initial Sepsis Screen: Does the patient meet any 2 criteria? No. Patient's initial sepsis screen is negative. Does the patient have a suspected source of infection? No. Patient's initial sepsis screen is negative. Risk Assessment: Do you want to hurt yourself or someone else? Patient reports no desire to harm self or others. Onset of symptoms was May 26, 2021. 20:28 Method Of Arrival: Ambulatory vg1 20:28 Acuity: NORM 3 vg1 Triage Assessment: 20:33 General: Appears in no apparent distress. comfortable, Behavior is calm, cooperative. vg1 Pain: Complains of pain in chest Pain does not radiate. Historical: - Allergies: 20:32 Sulfa (Sulfonamide Antibiotics); vg1 - Home Meds: 20:32 bumetanide 1 mg Oral tab 1 tab once daily [Active]; Coreg 3.125 mg Oral tab 1 tab daily vg1 [Active]; Fish Oil Oral [Active]; lisinopril 40 mg Oral tab 1 tab twice a day [Active]; Vitamin D3 Oral [Active]; Vitamin K Sub-Q [Active]; Lisinopril Oral [Active]; Nitroglycerin Oral [Active]; - PMHx: 20:33 aortic aneurysm; Diverticulitis; Hypertension; ibs; lymphedema; Pancreatitis; pulmonary vg1 HTN; RLS; - PSHx: 20:33 back sx; Cholecystectomy; hysterectomy; knee replacement; vg1 - Immunization history:: Adult Immunizations up to date, Client reports having NOT received the Covid vaccine. - Social history:: Smoking status: Patient denies any tobacco usage or history of. - Family history:: not pertinent. Screenin:41 Abuse screen: Denies threats or abuse. Nutritional screening: No deficits noted. bs2 Tuberculosis screening: No symptoms or risk factors identified. Fall Risk None identified. Assessment: 23:46 General: Appears uncomfortable, unkempt, Behavior is calm, cooperative, appropriate for kc4 age. Pain: Complains of pain in chest Pain does not radiate. Pain currently is 5 out of 10 on a pain scale. at worst was 10 out of 10 on a pain scale. level that patient reports is acceptable is 2 out of 10 on a pain scale. Quality of pain is described as dull, Pain began 1 day ago. Is lasting a few minutes. Alleviated by nothing. Aggravated by Noted to be restless, Also complains of no other associated symptoms. Neuro: No deficits noted. Cardiovascular: Reports chest pain, palpitations, Denies nausea, shortness of breath, syncope, vomiting, Heart tones S1 present Capillary refill is > 3 seconds in bilateral Pulses are all present. Edema is 4+ to left lower thigh, left knee, left midcalf, left ankle, left foot, right lower thigh, right knee, right midcalf, right ankle and right foot Rhythm is atrial fibrillation With PVC's Chest pain is described as Pain is 5 out of 10 on a pain scale. quality is stabbing, is located in left chest wall. Respiratory: No deficits noted. GI: No deficits noted. : No deficits noted. EENT: No deficits noted. Derm: No deficits noted. Musculoskeletal: No deficits noted. Vital Signs: 20:28 BP 121 / 75; Pulse 75; Resp 16; Temp 97.1; Pulse Ox 97% ; Weight 86.18 kg; Height 5 ft. vg1 2 in. (157.48 cm); Pain 7/10; 21:40 BP 120 / 71; Pulse 71; Resp 18; Pulse Ox 97% on R/A; bs2 22:56 BP 116 / 70; Pulse 61; Resp 18; Pulse Ox 96% on R/A; kc4 23:36 BP 140 / 85; Pulse 70; Resp 18; Temp 98.8(O); Pulse Ox 99% on R/A; Pain 5/10; kc4 20:28 Body Mass Index 34.75 (86.18 kg, 157.48 cm) vg1 ED Course: 20:09 Patient arrived in ED. wm 20:32 Triage completed. vg1 20:33 Arm band placed on. vg1 20:38 Rashmi Phelps is Primary Nurse. kc4 20:49 Luciana Martinez MD is Attending Physician. ma2 21:18 XRAY Chest (1 view) In Process Unspecified. EDMS 21:38 Protime (+INR) Sent. bs2 21:38 Troponin (Emerg Dept Use Only) Sent. bs2 21:38 CBC with Automated Diff Sent. bs2 21:39 NT PRO-BNP Sent. bs2 21:39 Magnesium Sent. bs2 21:39 Liver (Hepatic) Function Sent. bs2 21:39 Basic Metabolic Panel Sent. bs2 21:40 Inserted saline lock: 20 gauge in right antecubital area, using aseptic technique. bs2 21:40 Basic Metabolic Panel Sent. bs2 21:40 CBC with Diff Sent. bs2 21:40 LFT's Sent. bs2 21:40 Magnesium Sent. bs2 21:40 NT PRO-BNP Sent. bs2 21:40 PT-INR Sent. bs2 21:40 Troponin (emerg Dept Use Only) Sent. bs2 21:41 Patient has correct armband on for positive identification. Placed in gown. Bed in low bs2 position. Call light in reach. Side rails up X 1. Adult w/ patient. 22:19 Driss Moreno MD is Hospitalizing Provider. ma2 23:44 CORONAVIRUS Sent. kc4 05/27 00:00 No provider procedures requiring assistance completed. kc4 00:03 COVID-19 : Document "Date of Symptom Onset" if Symptomatic. Sent. kc4 00:03 COVID-19 : Document "Date of Symptom Onset" if Symptomatic. Sent. kc4 Administered Medications: 05/26 22:41 Drug: Aspirin Chewable Tablet 324 mg Route: PO; kc4 05/27 00:03 Follow up: Response: No adverse reaction kc4 06:29 Follow up: Response: No adverse reaction kc4 05/26 23:28 Drug: morphine 2 mg Route: IVP; Site: right antecubital; kc4 05/27 00:01 Follow up: Response: No adverse reaction kc4 06:29 Follow up: Response: No adverse reaction kc4 05/26 23:44 Drug: Lisinopril 20 mg Route: PO; kc4 05/27 00:01 Follow up: Response: No adverse reaction kc4 06:29 Follow up: Response: No adverse reaction kc4 Outcome: 05/26 22:19 Decision to Hospitalize by Provider. ma2 05/27 17:07 Patient left the ED. aj2 Signatures: Dispatcher [employer] EDMS Luciana Martinez MD MD ma2 Mi Ibarra RN RN vg1 Whitney Stephen Bridget, RN RN bs2 Geremias Kenyon aj2 Rashmi Phelps kc4 Corrections: (The following items were deleted from the chart) 05/26 20:34 20:32 Home Meds: Xanax 0.5 mg Oral tab; vg1 vg1 20:43 20:28 Chief complaint: Patient states: Pt was hospitalized this past weekend for Chest vg1 pain. Pt states Dr Castillo told her to come into ED to be evaluated. 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 vg1
--- NOTE | 2021-05-26 22:20 | EDPHYS ---
Physician Documentation [facility] Name: Ольга Cantrell Age: 85 yrs Sex: Female : 1935 Arrival Date: 05/26/2021 Time: 20:09 Bed 15 Private MD: ED Physician Luciana Martinez HPI: 05/26 21:25 This 85 yrs old Female presents to ER via Ambulatory with complaints of Heart ma2 Problems, Dr Referral. 21:25 The patient or guardian reports chest pain that is located primarily in the substernal ma2 area. Onset: gradually, 1 day(s) ago. Associated signs and symptoms: Pertinent negatives: cough, dizziness, lower extremity swelling, lightheadedness, vomiting. The chest pain is described as aching, a heaviness, a pressure. Severity of pain: At its worst the pain was mild in the emergency department the pain is unchanged. The patient has experienced similar episodes in the past. Historical: - Allergies: 20:32 Sulfa (Sulfonamide Antibiotics); vg1 - Home Meds: 20:32 bumetanide 1 mg Oral tab 1 tab once daily [Active]; Coreg 3.125 mg Oral tab 1 tab daily vg1 [Active]; Fish Oil Oral [Active]; lisinopril 40 mg Oral tab 1 tab twice a day [Active]; Vitamin D3 Oral [Active]; Vitamin K Sub-Q [Active]; Lisinopril Oral [Active]; Nitroglycerin Oral [Active]; - PMHx: 20:33 aortic aneurysm; Diverticulitis; Hypertension; ibs; lymphedema; Pancreatitis; pulmonary vg1 HTN; RLS; - PSHx: 20:33 back sx; Cholecystectomy; hysterectomy; knee replacement; vg1 - Immunization history:: Adult Immunizations up to date, Client reports having NOT received the Covid vaccine. - Social history:: Smoking status: Patient denies any tobacco usage or history of. - Family history:: not pertinent. ROS: 21:25 Constitutional: Negative for fever, chills, and weight loss. ma2 21:25 All other systems are negative. Exam: 21:25 Constitutional: This is a well developed, well nourished patient who is awake, alert, ma2 and in no acute distress. Head/Face: Normocephalic, atraumatic. Eyes: Pupils equal round and reactive to light, extra-ocular motions intact. Lids and lashes normal. Conjunctiva and sclera are non-icteric and not injected. Cornea within normal limits. Periorbital areas with no swelling, redness, or edema. ENT: Nares patent. No nasal discharge, no septal abnormalities noted. Tympanic membranes are normal and external auditory canals are clear. Oropharynx with no redness, swelling, or masses, exudates, or evidence of obstruction, uvula midline. Mucous membranes moist. Neck: Trachea midline, no thyromegaly or masses palpated, and no cervical lymphadenopathy. Supple, full range of motion without nuchal rigidity, or vertebral point tenderness. No Meningismus. Chest/axilla: Normal chest wall appearance and motion. Nontender with no deformity. No lesions are appreciated. Cardiovascular: Regular rate and rhythm with a normal S1 and S2. No gallops, murmurs, or rubs. Normal PMI, no JVD. No pulse deficits. Respiratory: Lungs have equal breath sounds bilaterally, clear to auscultation and percussion. No rales, rhonchi or wheezes noted. No increased work of breathing, no retractions or nasal flaring. Abdomen/GI: Soft, non-tender, with normal bowel sounds. No distension or tympany. No guarding or rebound. No evidence of tenderness throughout. Skin: Warm, dry with normal turgor. Normal color with no rashes, no lesions, and no evidence of cellulitis. MS/ Extremity: Has 2+ bilateral lower extremity pitting edema, equal bilaterally, otherwise pulses equal, no cyanosis. Neurovascular intact. Full, normal range of motion. Neuro: Awake and alert, GCS 15, oriented to person, place, time, and situation. Cranial nerves II-XII grossly intact. Motor strength 5/5 in all extremities. Sensory grossly intact. Cerebellar exam normal. Normal gait. Vital Signs: 20:28 BP 121 / 75; Pulse 75; Resp 16; Temp 97.1; Pulse Ox 97% ; Weight 86.18 kg; Height 5 ft. vg1 2 in. (157.48 cm); Pain 7/10; 21:40 BP 120 / 71; Pulse 71; Resp 18; Pulse Ox 97% on R/A; bs2 22:56 BP 116 / 70; Pulse 61; Resp 18; Pulse Ox 96% on R/A; kc4 23:36 BP 140 / 85; Pulse 70; Resp 18; Temp 98.8(O); Pulse Ox 99% on R/A; Pain 5/10; kc4 20:28 Body Mass Index 34.75 (86.18 kg, 157.48 cm) vg1 MDM: 20:49 Patient medically screened. ma2 21:25 Differential diagnosis: abnormal EKG, anxiety, esophagitis, gastritis, stable angina. ma2 HEART Score: History: Moderately Suspicious (1), ECG: Non specific repolarization disturbance / LBTB / PM (1), Age: > or = 65 years (2), Risk Factors: > or = 3 Risk factors for atherosclerotic disease (2), Troponin: < or = 1 x Normal Limit (0). 22:18 The patient was given aspirin in the Emergency Department. Data reviewed: vital signs, ar2 nurses notes, fdc records, old medical records. Counseling: I had a detailed discussion with the patient and/or guardian regarding: the historical points, exam findings, and any diagnostic results supporting the discharge/admit diagnosis, the presence of at least one elevated blood pressure reading (>120/80) during this emergency department visit, the need for outpatient follow up. 05/26 20:49 Order name: Basic Metabolic Panel [facility] 05/26 20:49 Order name: CBC with Diff [facility] 05/26 20:49 Order name: LFT's [facility] 05/26 20:49 Order name: Magnesium [facility] 05/26 20:49 Order name: NT PRO-BNP [facility] 05/26 20:49 Order name: PT-INR [facility] 05/26 20:49 Order name: Troponin (emerg Dept Use Only) [facility] 05/26 20:50 Order name: Basic Metabolic Panel; Complete Time: 22:17 EDMS 05/26 20:50 Order name: Liver (Hepatic) Function; Complete Time: 22:17 EDMS 05/26 20:50 Order name: Magnesium; Complete Time: 22:17 EDMS 05/26 20:50 Order name: CBC with Automated Diff; Complete Time: 21:56 EDMS 05/26 20:50 Order name: NT PRO-BNP; Complete Time: 22:17 EDMS 05/26 20:50 Order name: Protime (+INR); Complete Time: 22:17 EDMS 05/26 20:50 Order name: Troponin (Emerg Dept Use Only); Complete Time: 22:17 EDMS 05/26 20:49 Order name: XRAY Chest (1 view); Complete Time: 21:56 ma2 05/26 20:49 Order name: EKG; Complete Time: 20:50 ma2 05/26 20:49 Order name: Cardiac monitoring; Complete Time: 21:09 ma2 05/26 20:49 Order name: EKG - Nurse/Tech; Complete Time: 21:09 ma2 05/26 22:58 Order name: Lipase la1 05/26 23:39 Order name: COVID-19 : Document "Date of Symptom Onset" if Symptomatic. la1 05/26 23:40 Order name: COVID-19 : Document "Date of Symptom Onset" if Symptomatic. bs2 05/26 23:41 Order name: CORONAVIRUS EDMS 05/27 00:58 Order name: SARS-COV-2 RT PCR EDMS 05/27 03:55 Order name: CBC with Automated Diff EDMS 05/27 04:07 Order name: Comprehensive Metabolic Panel EDMS 05/27 04:07 Order name: Troponin I EDMS 05/27 11:53 Order name: Troponin I EDMS 05/26 20:49 Order name: IV Saline Lock; Complete Time: 21:40 ma2 05/26 20:49 Order name: Labs collected and sent; Complete Time: 21:40 ar2 05/26 20:49 Order name: O2 Per Protocol; Complete Time: 21:09 ar2 05/26 20:49 Order name: O2 Sat Monitoring; Complete Time: 21:09 ma2 Administered Medications: 22:41 Drug: Aspirin Chewable Tablet 324 mg Route: PO; kc4 05/27 00:03 Follow up: Response: No adverse reaction kc4 06:29 Follow up: Response: No adverse reaction 4 05/26 23:28 Drug: morphine 2 mg Route: IVP; Site: right antecubital; kc4 05/27 00:01 Follow up: Response: No adverse reaction kc4 06:29 Follow up: Response: No adverse reaction 4 05/26 23:44 Drug: Lisinopril 20 mg Route: PO; kc4 05/27 00:01 Follow up: Response: No adverse reaction kc4 06:29 Follow up: Response: No adverse reaction kc4 Disposition Summary: 05/26/21 22:19 Hospitalization Ordered Hospitalization Status: Observation ma2 Provider: Driss Moreno ma2 Condition: Stable ma2 Problem: new ma2 Symptoms: are unchanged ma2 Bed/Room Type: Standard ma2 Location: [facility] ER HOLD(05/27/21 01:25) tl1 Room Assignment: ERHOLD-(05/27/21 01:25) tl1 Diagnosis - Chest pain, unspecified ma2 Forms: - Medication Reconciliation Form ma2 - SBAR form ma2 Signatures: Dispatcher [employer] EDMS Abhishek aLnge, JEREMIAH-C COORDINATOR [employer]-Cla1 Nayana Mullen RN RN tl1 Luciana Martinez MD MD ma2 Mi Ibarra RN RN vg1 Rashmi Phelps kc4 Corrections: (The following items were deleted from the chart) 05/26 20:34 20:32 Home Meds: Xanax 0.5 mg Oral tab; vg1 vg1 05/27 01:05/26 22:19 Telemetry/MedSurg (observation) ma2 tl1 05/27 22:19 ma2 tl1
[2021-05-26] MEDS ORDERED: ASPIRIN 81 MG CHEWABLE TABLET ONE (22:50)
--- NOTE | 2021-05-26 23:32 | P.HP ---
Certification for Inpatient Patient admitted to: Observation Patient will require the following post-hospital care: None Practitioner: I am a practitioner with admitting privileges, knowledge of patient current condition, hospital course, and medical plan of care. Services: Services provided to patient in accordance with Admission requirements found in Title 42 Section 412.3 of the Code of Federal Regulations Patient History Date of Service: 05/26/21 Primary Care Provider: Dr. Chauhan Reason for admission: Chest pain History of Present Illness: 85-year-old female with history of atrial fibrillation on chronic anticoagulation therapy, hypertension, thoracic aortic aneurysm, restless leg syndrome presents emergency department for chest pain. Patient was seen and admitted for chest pain approximately 1 week ago, patient reports that this pain is different has moved from substernal area to left-sided chest described as pressure-like pain is nonradiating and described as moderate. Patient does report that she has periodic episodes of similar pain with much less severity, last heart catheterization was "many years ago" stress test probably 2 years ago reports she thinks she had an echocardiogram 1 year ago but is not available for review. Patient also with history of lymphedema has swelling to lower extremities. Patient was evaluated in the emergency department labs were significant for GFR 46 glucose 111. BNP 339 troponin negative EKG without acute changes. ED provider wishes to admit under observation for chest pain. Allergies Sulfa (Sulfonamide Antibiotics) Allergy (Verified 05/13/19 16:18) Nausea/Vomiting Home Medications: Bumetanide [Bumex*] 1 mg PO DAILY 05/13/19 Cholecalciferol (Vitamin D3) [Vitamin D3] 5,000 unit PO DAILY 05/13/19 Vitamin B Complex [Vitamin B Complex*] 1 cap PO DAILY 05/13/19 carvediloL [Coreg*] 3.125 mg PO DAILY 05/13/19 Amlodipine [Norvasc*] 5 mg PO DAILY #30 tab 05/14/19 Lisinopril [Zestril] 20 mg PO BID 05/21/21 - Past Medical/Surgical History Diabetic: No -: Hypertension -: Diverticulitis -: Pulmonary Hypertension -: IBS -: Pancreatitis -: Aortic Aneurism -: Restless leg syndrome -: Lymphadema -: Low Back Pain -: Atrial fibrillation -: Hysterectomy -: Knee replacement -: Back SX -: Gallbladder removal Psychosocial/ Personal History: 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 - Family History Mother -: Lung disease Father -: Hypertension, Cancer Notes: lung Sister -: Heart disease - Social History Smoking Status: Never smoker Alcohol use: No CD- Drugs: No Caffeine use: Yes Place of Residence: Home Review of Systems 10-point ROS is otherwise unremarkable Cardiovascular: Chest Pain Physical Examination - Physical Exam General: Alert, In no apparent distress, Oriented x3 HEENT: Atraumatic, PERRLA, Mucous membr. moist/pink, EOMI, Sclerae nonicteric Neck: Supple, 2+ carotid pulse no bruit, No LAD, Without JVD or thyroid abnormality Respiratory: Clear to auscultation bilaterally, Normal air movement Cardiovascular: Normal S1 S2, Irregular heart rate/rhythm, Systolic murmur Capillary refill: <2 Seconds Gastrointestinal: Normal bowel sounds, No tenderness Musculoskeletal: No tenderness Integumentary: No rashes Neurological: Normal speech, Normal strength at 5/5 x4 extr, Normal tone, Normal affect Lymphatics: No axilla or inguinal lymphadenopathy - Studies Laboratory Data (last 24 hrs) 05/26/21 21:35: PT 28.2 H, INR 2.43 05/26/21 21:35: WBC 8.30 D, Hgb 13.0, Hct 38.2, Plt Count 251 05/26/21 21:35: Sodium 142, Potassium 3.6, BUN 24 H, Creatinine 1.12, Glucose 111 H, Magnesium 2.2, Total Bilirubin 0.4, AST 19, ALT 24, Alkaline Phosphatase 27 L Assessment and Plan - Plan Assessment: Unstable angina Atrial fibrillation on chronic anticoagulation therapy Hypertension History of aortic aneurysm Restless leg syndrome Plan: Unstable angina: Monitor on telemetry, trend troponins, cardiology consult in place. Continue Xarelto, aspirin, other home medications which have been resumed. Last heart cath "many years ago" last stress test reportedly 2 years ago. Patient has never had stents placed. Patient reports she does have pain in the same area occasionally but pain much worse and at rest. Not relieved with nitroglycerin. Atrial fibrillation on chronic anticoagulation therapy: Continue beta-laura, Xarelto, monitor on telemetry Hypertension: Home medications continued History of aortic aneurysm: Patient with CT scan last week which revealed no acute changes, chest x-ray stable from previous today. Pain not typical of dissection. Restless leg syndrome: We will continue home medication DVT PPX: Continue Xarelto Code status: Full Discharge Plan: Home Plan to discharge in: 24 Hours - Advance Directives Does patient have a Living Will: No Does patient have a Durable POA for Healthcare: No - Code Status/Comfort Care Code Status Assessed: Yes (Full code) Critical Care: No Time Spent Managing Pts Care (In Minutes): 55
[2021-05-26] MEDS ORDERED: MORPHINE 2 MG/ML SYR ONE (23:52)
[2021-05-27] MEDS ORDERED: lisinopriL 20 MG TAB ONE ×2 (00:06→09:17)
[2021-05-27] MEDS ORDERED: NA CHLORIDE 0.9% 1,000 ML IV SCH (01:00)
[2021-05-27] MEDS ORDERED: MORPHINE 2 MG/ML SYR IV PRN (01:00)
[2021-05-27] MEDS ORDERED: ONDANSETRON 4 MG/2 ML VIAL IV PRN (01:00)
[2021-05-27 01:41] VITALS: BMI 34.7
[2021-05-27] MEDS ORDERED: NA CHLORIDE 0.9% 1,000 ML ONE ×2 (02:12→09:18)
[2021-05-27 03:54] LABS: Basophils % 0.4 % (0-1.3); Hematocrit 37.5 % (36.0-45.0); Lymphocytes % 29.3 % (15.3-44.8); MPV 7.6 fL (7.6-11.3); RBC Red Blood Cell Count 4.24 M/uL (3.86-4.86)
[2021-05-27 04:07] LABS: ALT/SGPT 22 U/L (12-78); AST/SGOT 16 U/L (15-37); Albumin 3.2 g/dL (3.4-5.0); Alkaline Phosphatase 25 U/L (45-117); BUN Blood Urea Nitrogen 22 mg/dL (7-18); Bicarbonate 32 mmol/L (21-32); Bilirubin Total 0.5 mg/dL (0.2-1.0); Glucose Level 96 mg/dL (74-106); Potassium 3.2 mmol/L (3.5-5.1); Protein, Total 6.5 g/dL (6.4-8.2); Sodium Level 142 mmol/L (136-145); Troponin I < 0.02 ng/mL (0.0-0.045)
[2021-05-27] MEDS ORDERED: carvediloL 3.125 MG TAB PO SCH (06:00)
[2021-05-27] MEDS ORDERED: lisinopriL 20 MG TAB PO SCH (09:00)
[2021-05-27] MEDS ORDERED: ASPIRIN EC 81 MG TAB PO SCH (09:00)
[2021-05-27] MEDS ORDERED: AMLODIPINE 5 MG TAB PO SCH (09:00)
[2021-05-27] MEDS ORDERED: ASPIRIN EC 81 MG TAB PO ONE (09:17)
[2021-05-27] MEDS ORDERED: AMLODIPINE 5 MG TAB ONE (09:17)
[2021-05-27] MEDS ORDERED: MORPHINE 2 MG/ML SYR ONE (09:31)
--- NOTE | 2021-05-27 10:40 | EKG ---
Test Date: 2021-05-26 Test Time: 21:04:29 Slitter Operator: LORETA MEASUREMENT RESULTS: Intervals: Rate: 73 WI: 182 QRSD: 122 QT: 422 QTc: 464 [place]: P: 38 WI: 182 QRS: 105 T: 2 INTERPRETIVE STATEMENTS: Sinus rhythm with premature atrial complexes Right bundle branch block Abnormal ECG Compared to ECG 05/21/2021 08:38:26 Sinus arrhythmia no longer present T-wave abnormality no longer present Possible ischemia no longer present Electronically Signed On 05-27-21 10:39:43 CDT by Jefferson Felix
[2021-05-27 12:07] VITALS: TEMP 98.7
[2021-05-27] MEDS ORDERED: RIVAROXABAN 15 MG TABLET PO SCH (17:00)
[2021-05-27 17:07] VITALS: BP 141/70
[2021-05-27 17:23] VITALS: O2SAT 99
--- NOTE | 2021-05-27 19:47 | P.DS ---
Admission Date: 05/26/21 Discharge Date: 05/27/21 Primary Care Provider: Dr. Chauhan Disposition: ROUTINE DISCHARGE Discharge Condition: GOOD Reason for Admission: Chest pain Consultations: Cardiology - Dr. Felix Procedures: CXR (05/26): FINDINGS: The lungs appear clear of acute infiltrate. The heart is mildly enlarged. No obvious change in the ascending thoracic aortic aneurysms Problem List Unstable angina vs fibromyalgia h/o fibromyalgia Atrial fibrillation on chronic anticoagulation therapy Hypertension History of aortic aneurysm Restless leg syndrome Brief History of Present Illness: 85-year-old female with history of atrial fibrillation on chronic anticoagulation therapy, hypertension, thoracic aortic aneurysm, restless leg syndrome presents emergency department for chest pain. Patient was seen and admitted for chest pain approximately 1 week ago, patient reports that this pain is different has moved from substernal area to left-sided chest described as pressure-like pain is nonradiating and described as moderate. Patient does report that she has periodic episodes of similar pain with much less severity, last heart catheterization was "many years ago" stress test probably 2 years ago reports she thinks she had an echocardiogram 1 year ago but is not available for review. Patient also with history of lymphedema has swelling to lower extremities. Patient was evaluated in the emergency department labs were significant for GFR 46 glucose 111. BNP 339 troponin negative EKG without acute changes. ED provider wishes to admit under observation for chest pain. Hospital Course: Troponins remained negative. EKG without acute ischemic changes. Cardiology consulted and recommended obtaining echocardiogram prior to discharge. [place] this was unlikely to be cardiac in origin. CXR did not reveal any infectious process and no obvious change in ascending thoracic aortic aneurysm. Patient had a CT Chest performed ~4-5 days priorf which was without any acute changes as well. She had some mild-moderate improvement of her symptoms. She was noted to have some soreness with palpation of b/l anterior chest wall. She did state part of her pain was similar to her fibromyalgia. She was noted to be in afib, rate controlled in the 60s. She was discharged home. Cardiology recommended patient follow up with her Picking Machine Operator Helper - to consider stress test / cardiac cath in the near future. Vital Signs/Physical Exam: Temp Pulse Resp BP Pulse Ox 98.7 F 63 18 141/70 H 99 05/27/21 17:06 05/27/21 17:06 05/27/21 06:30 05/27/21 17:06 05/27/21 17:06 General: Alert, In no apparent distress, Oriented x3 HEENT: Sclerae nonicteric Respiratory: Clear to auscultation bilaterally, Normal air movement Cardiovascular: No edema, Normal S1 S2, Irregular heart rate/rhythm Gastrointestinal: Soft and benign, Non-distended, Tenderness (mild epigastric (chronic)) Musculoskeletal: Tenderness (soreness with palpation of anterior chest wall bilaterally) Integumentary: No erythema Neurological: Normal speech, Normal affect Laboratory Data at Discharge: WBC 6.80 K/uL (4.3-10.9) D 05/27/21 03:06 Hgb 12.8 g/dL (12.0-15.0) 05/27/21 03:06 Hct 37.5 % (36.0-45.0) 05/27/21 03:06 Plt Count 246 K/uL (152-406) 05/27/21 03:06 PT 28.2 SECONDS (9.5-12.5) H 05/26/21 21:35 INR 2.43 05/26/21 21:35 Sodium 142 mmol/L (136-145) 05/27/21 03:06 Potassium 3.2 mmol/L (3.5-5.1) L 05/27/21 03:06 BUN 22 mg/dL (7-18) H 05/27/21 03:06 Creatinine 0.99 mg/dL (0.55-1.3) 05/27/21 03:06 Glucose 96 mg/dL (74-106) 05/27/21 03:06 Magnesium 2.2 mg/dL (1.8-2.4) 05/26/21 21:35 Total Bilirubin 0.5 mg/dL (0.2-1.0) 05/27/21 03:06 AST 16 U/L (15-37) 05/27/21 03:06 ALT 22 U/L (12-78) 05/27/21 03:06 Alkaline Phosphatase 25 U/L (45-117) L 05/27/21 03:06 Troponin I < 0.02 ng/mL (0.0-0.045) 05/27/21 11:10 Lipase 201 U/L (73-393) 05/26/21 21:35 Home Medications: Bumetanide [Bumex*] 1 mg PO DAILY 05/13/19 Cholecalciferol (Vitamin D3) [Vitamin D3] 5,000 unit PO DAILY 05/13/19 Vitamin B Complex [Vitamin B Complex*] 1 cap PO DAILY 05/13/19 carvediloL [Coreg*] 3.125 mg PO DAILY 05/13/19 Amlodipine [Norvasc*] 5 mg PO DAILY #30 tab 05/14/19 Lisinopril [Zestril] 20 mg PO BID 05/21/21 Physician Discharge Instructions: Your chest pain was evaluated by EKG, troponin (cardiac enzyme), chest x-ray, and Cardiology was consulted. Your EKG and troponins remained normal and did not suggest any acute damage/ischemia of your heart. Dr. Felix had an echocardiogram done and recommended no further workup at this time. Recommended follow up with your PCP and Picking Machine Operator Helper. Consider stress test and possible cardiac cath as an outpatient in the near future. There was otherwise no evidence of infection, tumors, or blood clots. There was no change noted to your thoracic aneurysm. Resume your home medications as previously prescribed. This may be due to your muscles / chest wall having some slight inflammation/irritation. Recommend advil/tylenol as discussed. Diet: AHA Activity: Ad kehinde Followup: NONE,NONE [Primary Care Provider] - Time spent managing pt's care (in minutes): 45
[2021-05-27] MEDS ORDERED: ATORVASTATIN 20 MG TAB PO SCH (21:00)
--- NOTE | 2021-05-29 18:01 | CON ---
Date of Consultation: 05/27/2021 Reason For Consultation: Chest pain. History Of Present Illness: Ms. Cantrell is an 85-year-old female. She is a patient of Dr Everardo Castillo from a cardiovascular standpoint. Came in complaining of substernal chest pain without any other symptoms. Denies any nausea, vomiting, diaphoresis, PND, orthopnea, pedal edema, palpitations , or syncope. Describes the chest pain as pressure. Has had a negative cardiac workup by Dr. Morgan i couple of years ago. She does not think she had a heart catheterization in the past. Denied any f ever or chills or cough. Denies any nausea or vomiting or diaphoresis. Had already ruled out for an MD. Medications: At home include Bumex, Coreg, lisinopril, vitamin K. Allergies: INCLUDE SULFA. Review of Systems: Negative. Social History: Negative. Family History: Negative. Past Medical History: Includes aortic aneurysm, hypertension, pancreatitis, pulmonary hypertension, restless legs syndrome, diverticulitis, irritable bowel syndrome, lymphedema, and hypertension. Physical Examination: Vital Signs: Stable, afebrile, sinus rhythm. HEENT: Negative. Neck: Supple with no bruit. Chest: Clear to auscultation and percussion. Cardiac: Revealed a regular rhythm and rate. No murmurs, gallops, or rubs. Abdomen: Benign. Extremities: Revealed no clubbing, cyanosis, or edema. Diagnostic Data: All normal except for potassium of 3.2. Her chest x-ray was normal. EKG showed a right bundle-branch block. Impression And Plan: Atypical chest pain with normal chest x-ray, chronic right bundle-branch block, negative troponin, MBs, CPK, and BNP. I think she needs to follow up with Dr. Castillo in the near f uture. Continue her present regimen. Her symptoms are more consistent with gastroesophageal reflux disease. Her other problems including aortic aneurysm, diverticulitis, hypertension, irritable bowel syndrome, chronic lymphedema, pancreatitis, and pulmonary hypertension as well as restless legs synd enoch are followed by her primary care physician are stable. No need for any further cardiac workup a t this point. I will have her follow up with Dr. Castillo as soon as she can. Continue present regim en. Case was discussed with Dr. Moreno. JESSE/JOHNNY Voice ID: [id number] Report ID: [id number]
--- NOTE | 2021-05-30 07:35 | ECHO ---
HEIGHT: 5 ft 2 in WEIGHT: 189 lb 14.4 oz DATE OF STUDY: 05/27/[address]: Driss Moreno MD 2-DIMENSIONAL: YES M.MODE: YES DOPPLER: YES COLOR FLOW: YES TDS: NO PORTABLE: NO DEFINITY: NO BUBBLE STUDY: NO DIAGNOSIS: CHEST PAIN CARDIAC HISTORY: CATHERIZATION: NO SURGERY: NO PROSTHETIC VALVE: NO PACEMAKER: NO MEASUREMENTS (cm) DIASTOLIC (NORMALS) SYSTOLIC (NORMALS) IVSd 1.1 (0.6-1.2) LA Diam 2.7 (1.9-4.0) LVEF 69% LVIDd 3.5 (3.5-5.7) LVIDs 2.2 (2.0-3.5) %FS 38% LVPWd 1.1 (0.6-1.2) Ao Diam 3.1 (2.0-3.7) 2 DIMENSIONAL ASSESSMENT: RIGHT ATRIUM: NORMAL LEFT ATRIUM: NORMAL RIGHT VENTRICLE: NORMAL LEFT VENTRICLE: NORMAL TRICUSPID VALVE: NORMAL MITRAL VALVE: NORMAL PULMONIC VALVE: NORMAL AORTIC VALVE: SCLEROSIS PERICARDIAL EFFUSION: NONE AORTIC ROOT: NORMAL LEFT VENTRICULAR WALL MOTION: NORMAL DOPPLER/COLOR FLOW: MILD TRICUSPID REGURGITATION. COMMENTS: MILD TRICUSPID REGURGITATION. NORMAL LEFT VENTRICULAR EJECTION FRACTION AND SIZE. AORTIC SCLEROSIS WITH NO STENOSIS. TECHNOLOGIST: Katlin JUNIOR
== END 2021-05-27 17:04 | disposition home or self-care (01) ==
LOC: ER 20:07 → ERHOLD 23:23
PROVIDERS: ADMIT Hospitalist; ATTEND Hospitalist
DX: I20.0 Unstable angina (principal); I48.91 Unspecified atrial fibrillation; M79.7 Fibromyalgia; I10 Essential (primary) hypertension; I45.10 Unspecified right bundle-branch block; I71.2 Thoracic aortic aneurysm, without rupture; G25.81 Restless legs syndrome; I27.20 Pulmonary hypertension, unspecified; K57.92 Diverticulitis of intestine, part unspecified, without perforation or abscess without bleeding; K58.9 Irritable bowel syndrome, unspecified; K85.90 Acute pancreatitis without necrosis or infection, unspecified; I89.0 Lymphedema, not elsewhere classified; Z79.01 Long term (current) use of anticoagulants; Z88.2 Allergy status to sulfonamides; Z90.49 Acquired absence of other specified parts of digestive tract; Z90.710 Acquired absence of both cervix and uterus; Z96.659 Presence of unspecified artificial knee joint; Z20.822 Contact with and (suspected) exposure to COVID-19; Z82.49 Family history of ischemic heart disease and other diseases of the circulatory system; Z83.6 Family history of other diseases of the respiratory system; Z80.9 Family history of malignant neoplasm, unspecified
CPT/HCPCS: 93005; 93306; 85025 ×2; 80048; 36415; 83735; 85610; 80076; 84484 ×3; 83690; 80053; 83880; 71045; 96374; 99284; U0003; J2270 ×2; J7030 ×2; G0378 ×2

== ENCOUNTER 2022-08-13 10:23 | Emergency (ER) | payer OTHER ==
--- OUTSIDE RECORDS SUMMARY | 2022-08-13 10:26 | XMS REPORT | Continuity of Care Document ---
:1935 Author Organization [facility] t Address [address] [place] [address] Care Team Providers Name Role Phone Riaz Castro MD Attending Clinician RIAZ CASTRO Attending Clinician Unavailable Jim Wright Attending Clinician Payers Payer Name Policy Type Policy Number Effective Date Expiration Date S ource Problems Condition Condition Condition Status Onset Resolution Last Treating Co mments Source Name Details Category Date Date Treatment Clinician Date Hypertensi Hypertensi Disease Active U nivers ve ve 1-30 [place] Hypertensi Hypertens Problem Active 2020-01-15 Memoria ve franc 21:39:51 l disorder, disorder, Herm dorita systemic systemic arterial arterial (disorder) (disorder) Active Problem 01/15/2020 [facility] Paresthesi Paresthes Problem Active 2020-01-15 Memoria a ia 21:39:51 l (finding) (finding) Herm dorita Active Problem 01/15/2020 [facility] Simple Simple Problem Active 2020-01-15 [place] sam obesity obesity 21:39:51 l (disorder) (disorder) He rmann Active Problem 01/15/2020 [facility] Transient Transient Problem Active 2020-01-15 Memoria ischemic ischemic 21:39:51 l attack attack [place] (disorder) (disorder) Active Problem 01/15/2020 [facility] Allergies, Adverse Reactions, Alerts Allergy Allergy Status Severity Reaction(s) Onset Inactive Treating Comm ents Source Name Type Date Date Clinician Pentazoc Propensi Active Unknown - Uni vers ine ty to See comments 1-30 ity of Lactate adverse 00:00: [place] reaction 00 Medical s Branch PENTAZOC DRUG Active Unknown-Cmnt Un agnes INE INGREDI 1-30 ity of LACTATE 00:00: [place] 00 Medical Branch Morphine Propensi Active Other - See 2015-08 headache Univers ty to comments 09-27 ity of adverse 00:00: [place] reaction 00 Medical s Branch Sulfa Propensi Active Rash 2015-08 Univers (Sulfona ty to 09-27 ity of mide adverse 00:00: [place] Antibiot reaction 00 Medica l ics) s Branch MORPHINE DRUG Active Other-Cmnt 2015-08 Univ ers INGREDI 2- ity of 00:00: [place] 00 Medical Branch SULFA Drug Active Low Rash 2015-08 Univers (SULFONA Class 2- ity of MIDE 00:00: [place] ANTIBIOT 00 Medical ICS) Branch ALIZE TALVIN Active Memoria l Main sulfa sulfa Active Memoria drugs drugs l Main Social History Social Habit Start Date Stop Date Quantity Comments Source Tobacco use and 2021-01-06 2021-01-06 Never used Universit y of exposure 00:00:00 00:00:00 [facility] Alcohol intake 2021-01-06 2021-01-06 Lifetime University of 00:00:00 00:00:00 non-drinker [facility] (finding) Branch Sex Ass[birth year] Universit y of 00:00:00 00:00:00 [facility] Smoking Status Start Date Stop Date Source Social History [facility] Main Medications Ordered Filled Start Stop Current Ordering Indication Dosage Frequency Signature Comments Components Source Medication Medication Date Date Medication? Clinician (SIG) Name Name vitamin Yes Take by [facility] B-12 100 5-13 mouth. ity of mcg tablet 15:08: [address] Branch vitamin C Yes 1000mg Take 1,000 Univers with jillian 5-13 mg by ity of hips 1,000 15:08: mouth. [place] mg tablet 10 Medical Branch Cholecalcif Yes 5000U Take 5,000 Univers marisol, 5-13 Units by ity of Vitamin D3, 15:08[place] 125 mcg 10 Medical (5,000 Branch unit) tablet vitamin Yes Take by Univers B-12 100 5-13 mouth. ity of mcg tablet 15:08: [address] vitamin C Yes 1000mg Take 1,000 Univers with jillian 5-13 mg by ity of hips 1,000 15:08: mouth. [place] mg tablet 10 Medical Branch Cholecalcif Yes 5000U Take 5,000 Univers marisol, 5-13 Units by ity of Vitamin D3, 15:08: [place] 125 mcg 10 Medical (5,000 Branch unit) tablet diclofenac Yes [id number] 75mg Take 1 U nivers 75 mg EC 5-13 tablet by ity of tablet 00:00: mouth 2 [place] (two) Medical times Branch daily with meals. diclofenac Yes [id number] 75mg Take 1 U nivers 75 mg EC 5-13 tablet by ity of tablet 00:00: mouth 2 [place] (two) Medical times Branch daily with meals. amLODIPine Yes 5mg Take 5 mg Un agnes 5 mg tablet 4-09 by mouth ity of 00:00: daily. [place] [facility] Branch amLODIPine Yes 5mg Take 5 mg Un agnes 5 mg tablet 4-09 by mouth ity of 00:00: daily. [place] [facility] Branch Aspirin 81 2019-0 Yes 81 mg = 1 Me moria MG Enteric 1-17 tab, PO, l Coated 21:24: Daily, # [place] Tablet 00 30 tab, 3 Refill(s), other Hydrochloro 2019-0 Yes 1 tab, PO, Memoria thiazide 1-17 BID, 0 l 12.5 MG / 20:43: Refill(s) Her [place] Lisinopril 00 20 MG Oral Tablet Amlodipine 2019-0 Yes 5 mg = 1 Mem oria 5 MG Oral 1-17 tab, PO, l Tablet 20:43: Daily, 0 [place] [Norvasc] 00 Refill(s) Alprazolam 2019-0 Yes 0.5 mg = 1 M emoria 0.5 MG Oral 1-17 tab, PO, l Tablet 20:43: TID, 0 [place] [Xanax] 00 Refill(s) carvedilol 2019-0 Yes 3.125 mg = M emoria 3.13 MG 1-17 1 tab, PO, l Oral Tablet 20:43: BID, # 60 [place] [Coreg] 00 tab, 0 Refill(s) bumetanide 2019-0 Yes 1 mg = 1 Mem oria 1 mg oral 1-17 tab, PO, l tablet 20:43: Daily, 0 Main 00 Refill(s) bumetanide 2016-0 Yes 1mg Take 1 mg Un agnes 1 mg tablet 1-31 by mouth ity of 22:32: daily. [address] bumetanide 2016-0 Yes 1mg Take 1 mg Un agnes 1 mg tablet 1-31 by mouth ity of 22:32: daily. [address] nitroglycer [address] 1 Uni vers in 0.4 mg 1-31 tablet ity of sublingual 00:00: [place] tablet 00 tongue Medical every 5 Branch (five) minutes as needed for Chest pain. nitroglycer Yes .4mg Place 1 Uni vers in 0.4 mg 1-31 tablet ity of sublingual 00:00: [place] tablet 00 tongue Medical every 5 Branch (five) minutes as needed for Chest pain. carvedilol 2015-08 Yes 3.125mg 3.125 mg 2 Univers (COREG) 1-19 (two) ity of 3.125 mg 00:00: times [place] tablet 00 daily with Medical meals. Branch carvedilol 2015-08 Yes 3.125mg 3.125 mg 2 Univers (COREG) 1-19 (two) ity of 3.125 mg 00:00: times [place] tablet 00 daily with Medical meals. Branch lisinopril 2015-08 Yes 80mg 80 mg Univer s (PRINIVIL,Z 0-20 daily. ity of ESTRIL) 40 00:00: [place] mg tablet 00 [facility] lisinopril 2015-08 Yes 80mg 80 mg Univer s (PRINIVIL,Z 0-20 daily. ity of ESTRIL) 40 00:00: [place] mg tablet 00 [facility] ALPRAZolam Yes .5mg 0.5 mg at Un agnes (XANAX) 0.5 9-03 bedtime. ity of mg tablet 00:00: [place] 00 [facility] ALPRAZolam Yes .5mg 0.5 mg at Un agnes (XANAX) 0.5 9-03 bedtime. ity of mg tablet 00:00: [address] Vital Signs Vital Name Observation Time Observation Value Comments Source Heart rate 2021-01-06 15:04:00 80 /min [facility] Body height 2021-01-06 15:04:00 157.5 cm [facility] Body weight 2021-01-06 15:04:00 88.451 kg [facility] BMI 2021-01-06 15:04:00 35.67 kg/m2 [facility] Systolic (mm Hg) 2019-10-14 17:51:00 [place] [facility] Main Diastolic (mm Hg) 2019-10-14 17:51:00 Mem orial [place] Heart Rate 2019-10-14 17:51:00 [facility] Main Height 2019-10-14 17:51:00 165.1 cm [facility] [place] Weight 2019-10-14 17:51:00 [facility] Main BMI Calculated 2019-10-14 17:51:00 Memori al Main Systolic (mm Hg) 2019-09-12 20:40:00 [place] [facility] Main Diastolic (mm Hg) 2019-09-12 20:40:00 Mem orial [place] Heart Rate 2019-09-12 20:40:00 Memorial Main Respitory Rate 2019-09-12 20:40:00 Memori al [place] Height 2019-09-12 20:40:00 157.48 cm [facility] Main Weight 2019-09-12 20:40:00 Memorial [place] BMI Calculated 2019-09-12 20:40:00 Memori al Main Procedures This patient has no known procedures. Encounters Start End Encounter Admission Attending Care Care Encounter Source Date/Time Date/Time Type Type Clinicians Facility Department ID 2021-01-06 2021-01-06 Office ABBY Castro [id number] Univers 09:53:24 10:21:31 Visit [facility] [id number] it y of Surgical [id number] Rudy as Specialti [id number] Ny dical es [address] Branch [place] 2021-01-06 2021-01-06 Outpatient R [facility] [id number] Univers 10:00:00 10:00:00 RIAZ [facility] 2020-01-13 2020-01-13 Ambulatory nullFlavo MNA [id number] Memoria 16:45:00 16:45:00 Pre-Reg r Neurology 02 l [place] [facility] 2020-01-13 2020-01-13 Outpatient MHIE MHIE [id number] Memoria 11:45:00 11:45:00 02 shravan Quach 2020-01-13 2020-01-13 Outpatient Kyle MHMISCHER MHMISCHER [id number] 11:45:00 11:45:00 Jim 02 Roe 2019-10-14 2019-10-15 Outpatient nullFlavo MNA [id number] Memoria 17:45:00 05:59:59 r Neurology 01 l Mitzi Quach 2019-10-14 2019-10-14 Outpatient ARNOLD WrightSCHER MHMISCHER [id number] 11:45:00 23:59:59 Jim 01 Roe 2019-10-14 2019-10-14 Outpatient MHIE MHIE [id number] Memoria 11:45:00 11:45:00 01 shravan Quach 2019-09-12 2019-09-13 Outpatient nullFlavo MNA [id number] Memoria 20:30:00 05:59:59 r Neurology 00 l Mitzi Quach 2019-09-12 2019-09-12 Outpatient ARNOLD WrightSCHER MHMISCHER [id number] 14:30:00 23:59:59 Jim 00 Roe 2019-09-12 2019-09-12 Outpatient MHIE MHIE [id number] Memoria 14:30:00 14:30:00 00 shravan Quach Results This patient has no known results.
[2022-08-13 11:33] LABS: Absolute Lymphocytes (CBC) 1.6 K/uL (0.7-4.9); Lymphocytes % 20.1 % (15.3-44.8); MCV 88.1 fL (80-100); MPV 7.4 fL (7.6-11.3); RBC Red Blood Cell Count 4.43 M/uL (3.86-4.86)
[2022-08-13 11:37] LABS: Protime INR 1.29
[2022-08-13 11:50] LABS: Albumin 3.4 g/dL (3.4-5.0); Bilirubin Total 0.5 mg/dL (0.2-1.0); Potassium 3.4 mmol/L (3.5-5.1); Protein, Total 6.9 g/dL (6.4-8.2)
--- NOTE | 2022-08-13 12:06 | ER ---
Nurse's Notes [facility] Name: Ольга Cantrell Age: 87 yrs Sex: Female : 1935 Arrival Date: 08/13/2022 Time: 10:26 Bed 15 Private MD: Diagnosis: Other hemorrhoids Presentation: 08/13 10:42 Chief complaint: Patient states: she's had rectal bleeding since Sunday, bright red. kc6 stated she has a history of hemorrhoids. Coronavirus screen: Vaccine status: Patient reports being unvaccinated. At this time, the client does not indicate any symptoms associated with coronavirus-19. Ebola Screen: No symptoms or risks identified at this time. Initial Sepsis Screen: Does the patient meet any 2 criteria? No. Patient's initial sepsis screen is negative. Does the patient have a suspected source of infection? No. Patient's initial sepsis screen is negative. Risk Assessment: Do you want to hurt yourself or someone else? Patient reports no desire to harm self or others. Onset of symptoms was August 11, 2022. 10:42 Method Of Arrival: Ambulatory [place] 10:42 Acuity: NORM 3 kc6 Triage Assessment: 10:46 General: Appears in no apparent distress. comfortable, Behavior is calm, cooperative, kc6 appropriate for age. Pain: Denies pain. EENT: No signs and/or symptoms were reported regarding the EENT system. Neuro: Carranza Agitation-Sedation Scale (RASS): 0 - Alert and Calm Level of Consciousness is awake, alert, obeys commands, Oriented to person, place, time, situation, Appropriate for age. Cardiovascular: Heart tones S1 S2 present Capillary refill < 3 seconds. Respiratory: Airway is patent Trachea midline Respiratory effort is even, unlabored, Respiratory pattern is regular, symmetrical, Breath sounds are clear bilaterally. GI: Reports rectal bleeding, Patient currently denies abdominal pain, constipation, diarrhea, nausea, vomiting. : No signs and/or symptoms were reported regarding the genitourinary system. Derm: No signs and/or symptoms reported regarding the dermatologic system. Skin is intact, Skin is pink, warm \T\ dry. Musculoskeletal: No signs and/or symptoms reported regarding the musculoskeletal system. Circulation, motion, and sensation intact. Capillary refill < 3 seconds, Range of motion: intact in all extremities. Historical: - Allergies: 10:44 Sulfa (Sulfonamide Antibiotics); kc6 - Home Meds: 10:44 Lisinopril Oral [Active]; Xarelto oral [Active]; amlodipine oral [Active]; carvedilol kc6 oral [Active]; valarian root [Active]; ashwagandha root extract oral [Active]; - PMHx: 10:44 aortic aneurysm; Hypertension; ibs; lymphedema; Diverticulitis; Pancreatitis; pulmonary kc6 HTN; RLS; Atrial fibrillation; - PSHx: 10:44 back sx; Cholecystectomy; hysterectomy; knee replacement; Appendectomy; kc6 - Immunization history:: Client reports having NOT received the Covid vaccine. Flu vaccine is not up to date. - Social history:: Smoking status: Patient denies any tobacco usage or history of. Screenin:47 [facility] ED Fall Risk Assessment (Adult) History of falling in the last 3 months, kc6 including since admission No falls in past 3 months (0 pts) Confusion or Disorientation No (0 pts) Intoxicated or Sedated No (0 pts) Impaired Gait No (0 pts) Mobility Assist Device Used No (0 pt) Altered Elimination No (0 pt) Score/Fall Risk Level 0 - 2 = Low Risk. Abuse screen: Denies threats or abuse. Denies injuries from another. Nutritional screening: No deficits noted. Tuberculosis screening: No symptoms or risk factors identified. Assessment: 10:47 Reassessment: please see triage assessment. kc6 11:47 Reassessment: Patient appears in no apparent distress at this time. No changes from [place] previously documented assessment. Patient and/or family updated on plan of care and expected duration. Pain level reassessed. Patient is alert, oriented x 3, equal unlabored respirations, skin warm/dry/pink. 12:30 Reassessment: Patient appears in no apparent distress at this time. No changes from [place] previously documented assessment. Patient and/or family updated on plan of care and expected duration. Pain level reassessed. Patient is alert, oriented x 3, equal unlabored respirations, skin warm/dry/pink. Vital Signs: 10:42 BP 152 / 89; Pulse 81; Resp 18 S; Temp 98.1(O); Pulse Ox 98% on R/A; Weight 86.64 kg kc6 (R); Height 5 ft. 2 in. (157.48 cm) (R); Pain 0/10; 12:47 BP 133 / 79 Supine; Pulse 83; kc6 12:47 BP 140 / 81 Sitting; Pulse 98; kc6 12:47 BP 133 / 73 Standing; Pulse 96; kc6 10:42 Body Mass Index 34.93 (86.64 kg, 157.48 cm) kc6 ED Course: 10:26 Patient arrived in ED. as 10:28 Sal Ambriz MD is Attending Physician. sp3 10:33 Samreen Chappell, ELIDA is Primary Nurse. kc6 10:44 Triage completed. kc6 10:48 Placed in gown. Bed in low position. Call light in reach. Side rails up X2. kc6 11:20 Arm band placed on. kc6 11:28 Accessed peripheral vein via ultrasound, utilizing dynamic ultrasound technique using jd3 20G Nexia IV catheter ,sterile technique, per hospital protocol. Clean \T\ dry. Dressing intact. Good blood return. Flushes easily. 20 G right upper arm. 12:00 Warm blanket given. mm9 12:00 monitoring manager on. Pulse ox on. NIBP on. mm9 12:48 No provider procedures requiring assistance completed. IV discontinued, intact, kc6 bleeding controlled, No redness/swelling at site. Pressure dressing applied. Administered Medications: No medications were administered Medication: 12:50 VIS not applicable for this client. kc6 Outcome: 12:05 Discharge ordered by . sp3 12:48 Discharged to home ambulatory. kc6 12:48 Condition: stable 12:48 Discharge instructions given to patient, Instructed on discharge instructions, follow up and referral plans. Demonstrated understanding of instructions, follow-up care. 12:50 Patient left the ED. kc6 Signatures: Megha Winter Jonathon RN RN jd3 Sal Ambriz MD MD sp3 Samreen Chappell, ELIDA RN khari6 Lisa Winter mm9
--- NOTE | 2022-08-13 12:06 | EDPHYS ---
Physician Documentation [facility] Name: Ольга Cantrell Age: 87 yrs Sex: Female : 1935 Arrival Date: 08/13/2022 Time: 10:26 Bed 15 Private MD: ED Physician Sal Ambriz HPI: 08/13 11:45 This 87 yrs old Female presents to ER via Ambulatory with complaints of Rectal sp3 Bleeding, Weakness. 11:45 87-year-old female with history of hypertension, IBS, diverticulitis, hemorrhoids sp3 presents to the ED with a chief complaint of bright red blood per rectum with bowel movements over the last 3 days. Patient has similar issues 1 month ago and she presented to the PCP where her blood levels were checked and hemoglobin was normal. Today she states that she feels mildly weak but is still able to ambulate and carry out her ADLs. Patient denies any abdominal pain, shortness of breath, chest pain, rash, other bleeding, melena, dark stools, emanuel blood, or any other concerning findings on ROS at this time.. Historical: - Allergies: 10:44 Sulfa (Sulfonamide Antibiotics); kc6 - Home Meds: 10:44 Lisinopril Oral [Active]; Xarelto oral [Active]; amlodipine oral [Active]; carvedilol kc6 oral [Active]; valarian root [Active]; ashwagandha root extract oral [Active]; - PMHx: 10:44 aortic aneurysm; Hypertension; ibs; lymphedema; Diverticulitis; Pancreatitis; pulmonary kc6 HTN; RLS; Atrial fibrillation; - PSHx: 10:44 back sx; Cholecystectomy; hysterectomy; knee replacement; Appendectomy; kc6 - Immunization history:: Client reports having NOT received the Covid vaccine. Flu vaccine is not up to date. - Social history:: Smoking status: Patient denies any tobacco usage or history of. ROS: 11:46 Constitutional: Negative for fever, chills, and weight loss, Eyes: Negative for injury, sp3 pain, redness, and discharge, ENT: Negative for injury, pain, and discharge, Neck: Negative for injury, pain, and swelling, Cardiovascular: Negative for chest pain, palpitations, and edema, Respiratory: Negative for shortness of breath, cough, wheezing, and pleuritic chest pain, Back: Negative for injury and pain, MS/Extremity: Negative for injury and deformity, Skin: Negative for injury, rash, and discoloration, Neuro: Negative for headache, weakness, numbness, tingling, and seizure, Psych: Negative for depression, anxiety, suicide ideation, homicidal ideation, and hallucinations, Allergy/Immunology: Negative for hives, rash, and allergies, Endocrine: Negative for neck swelling, polydipsia, polyuria, polyphagia, and marked weight changes. 11:46 All other systems are negative. Exam: 11:47 Constitutional: This is a well developed, well nourished patient who is awake, alert, sp3 and in no acute distress. Head/Face: Normocephalic, atraumatic. Eyes: Pupils equal round and reactive to light, extra-ocular motions intact. Lids and lashes normal. Conjunctiva and sclera are non-icteric and not injected. Cornea within normal limits. Periorbital areas with no swelling, redness, or edema. ENT: Nares patent. No nasal discharge, no septal abnormalities noted. External auditory canals are clear. Oropharynx with no redness, swelling, or masses, exudates, or evidence of obstruction, uvula midline. Mucous membranes moist. Neck: Trachea midline, no thyromegaly or masses palpated, and no cervical lymphadenopathy. Supple, full range of motion without nuchal rigidity, or vertebral point tenderness. No Meningismus. Chest/axilla: Normal chest wall appearance and motion. Nontender with no deformity. No lesions are appreciated. Cardiovascular: Regular rate and rhythm with a normal S1 and S2. No gallops, murmurs, or rubs. Normal PMI, no JVD. No pulse deficits. Respiratory: Lungs have equal breath sounds bilaterally, clear to auscultation and percussion. No rales, rhonchi or wheezes noted. No increased work of breathing, no retractions or nasal flaring. Back: No spinal tenderness. No costovertebral tenderness. Full range of motion. Skin: Warm, dry with normal turgor. Normal color with no rashes, no lesions, and no evidence of cellulitis. 11:47 : Dry blood present at anus. Patient has hemorrhoids.. Vital Signs: 10:42 BP 152 / 89; Pulse 81; Resp 18 S; Temp 98.1(O); Pulse Ox 98% on R/A; Weight 86.64 kg kc6 (R); Height 5 ft. 2 in. (157.48 cm) (R); Pain 0/10; 12:47 BP 133 / 79 Supine; Pulse 83; kc6 12:47 BP 140 / 81 Sitting; Pulse 98; kc6 12:47 BP 133 / 73 Standing; Pulse 96; kc6 10:42 Body Mass Index 34.93 (86.64 kg, 157.48 cm) kc6 MDM: 10:37 Patient medically screened. sp3 11:47 Data reviewed: vital signs, nurses notes. ED course: 87-year-old female with bright red sp3 blood per rectum likely from hemorrhoid source. Patient is hemodynamically stable and hemoglobin is also normal. Once chemistries are resulted and they are normal, we will discharge patient home with PCP follow-up. Clinically of ruled out sepsis, remote dynamic instability, hypovolemic shock, large-scale GI bleed, any other critical findings at this time.. 08/13 10:37 Order name: CBC with Diff; Complete Time: 11:45 sp3 08/13 10:37 Order name: CMP; Complete Time: 12:04 sp3 08/13 10:37 Order name: IV Saline Lock; Complete Time: 11:28 sp3 08/13 10:37 Order name: Labs collected and sent; Complete Time: 11:28 sp3 08/13 10:37 Order name: PT-INR; Complete Time: 11:45 sp3 08/13 10:37 Order name: Orthostatics; Complete Time: 12:47 sp3 Administered Medications: No medications were administered Disposition Summary: 08/13/22 12:05 Discharge Ordered Location: Home sp3 Condition: Stable sp3 Diagnosis - Other hemorrhoids sp3 Followup: sp3 - With: Private Physician - When: As needed - Reason: Continuance of care Discharge Instructions: - Discharge Summary Sheet sp3 - Rectal Bleeding sp3 Forms: - Medication Reconciliation Form sp3 - Thank You Letter sp3 - Antibiotic Education sp3 - Prescription Opioid Use sp3 Signatures: Dispatcher [employer] EDSal Grace MD MD sp3 Samreen Chappell RN RN kc6
[2022-08-13 12:54] VITALS: TEMP 98.1; O2SAT 98
[2022-08-13 12:55] VITALS: BP 133/73
== END 2022-08-13 12:50 | disposition home or self-care (01) ==
LOC: ER 10:23
DX: K64.8 Other hemorrhoids (principal); Z88.2 Allergy status to sulfonamides
CPT/HCPCS: 36415; 80053; 85025; 85610; 99284

== ENCOUNTER 2023-02-23 09:24 | Day surgery (SDC) | payer OTHER ==
--- NOTE | 2023-02-19 17:09 | EKG ---
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
[2023-02-23] MEDS ORDERED: Ringers Lactate 1,000 ML IV ONE (09:54)
[2023-02-23] MEDS ORDERED: LIDOCAINE 1% MPF 5 ML VIAL ONE (11:17)
[2023-02-23] MEDS ORDERED: propofoL 200 MG/20 ML VIAL IV ONE (11:17)
[2023-02-23] MEDS ORDERED: EPHEDRINE SULF 50 MG/ML VIAL ONE (13:24)
[2023-02-23] MEDS ORDERED: LIDOCAINE HCL/EPINEPHRINE 20 ML MDV ONE (13:28)
--- NOTE | 2023-02-23 14:56 | P.OP ---
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 The skin around the lesion was injected with approximately a 5 to 6 mL of 1% lidocaine with epinephrine. The scalp was scrubbed with Betadine and prepped in a standard fashion. The scalp lesion was visualized and was approximately 2 cm in diameter with moderately thick yellow crusting. A 5 mm margin was designed circumferentially around the gross tumor. A 15 blade scalpel was used to incise through the skin circumferentially at the planned incision site. The scalpel and Bovie electrocautery was used to elevate the specimen at the loose connective tissue layer. Moderate bleeding was noted around the 1:00 aspect and 7:00 aspect. These areas were clamped until the specimen was completely removed. A suture was placed at the anteriormost aspect marking 12:00 with a corresponding suture placed on the patient for future reference if needed. The specimen was sent to pathology for frozen section analysis. The clamped areas of bleeding were then ligated with silk suture and several areas of skin edges were cauterized using Bovie electrocautery. The pathologist confirmed squamous cell carcinoma with negative peripheral and deep margins. The surgical defect was examined and was 3 cm in maximal diameter. The area was left open to close by secondary intention and a wet-to-dry dressing was applied and secured using a Spandage dressing like a headband. The patient was then returned to care of anesthesia for awakening extubation in the operating room which proceeded without difficulty Disposition patient be discharged home later today in the care of her family and follow-up with Dr. Mendoza in 1 to 2 weeks. The family is instructed in application of a wet-to-dry dressing and can contact Dr. Mendoza for any questions or concerns. Complications: None Implants: None Fluids & blood products: See anesthesia record Transferred to: Recovery Room Condition: Good
[2023-02-23 15:34] VITALS: O2SAT 97
[2023-02-23 15:40] VITALS: BP 140/79; TEMP 97
== END 2023-02-23 15:25 | disposition home or self-care (01) ==
LOC: OR 09:24
PROVIDERS: ATTEND Otolaryngology
PROC: 0HB0XZZ Excision of Scalp Skin, External Approach (ICD-10-PCS; principal; 2023-02-23 11:30)
DX: D04.4 Carcinoma in situ of skin of scalp and neck (principal); L57.0 Actinic keratosis
CPT/HCPCS: 11623; 93005; 88331; 88332; 88305; J2704; J2001; J7120

== ENCOUNTER 2023-02-24 09:07 | Emergency (ER) | payer OTHER ==
--- OUTSIDE RECORDS SUMMARY | 2023-02-24 09:11 | XMS REPORT | Continuity of Care Document ---
:1935 Author Organization [facility] Address [address] [facility] [address] [place] [id number] Care Team Providers Name Role Phone Riaz [...] emergency [place] Transient Transient Problem Active 2020-01-15 Memoria ischemic ischemic 21:39:51 l attack attack Main (disorder) (disorder) Active Problem 01/15/2020 [facility] Hypertensi Hypertens Problem Active 2020-01-15 Memoria ve [...] He rmann Active Problem 01/15/2020 [facility] Allergies, Adverse [...] ICS) Branch ALIZE TALVIN Active Memoria l [place] sulfa sulfa Active Memoria drugs drugs l Main Social History Social Habit Start Date Stop Date Quantity Comments Source Tobacco use and 2021-01-06 2021-01-06 Never used Universit y of exposure 00:00:00 00:00:00 [facility] Alcohol intake 2021-01-06 2021-01-06 Lifetime University of 00:00:00 00:00:00 non-drinker [facility] (finding) Branch Sex Ass[birth year] At [birth year] Universit [facility] of 00:00:00 00:00:00 [facility] Smoking Status Start Date Stop Date Source Social History [facility] Main Medications Ordered Filled Start Stop Current Ordering Indication Dosage Frequency Signature Comments Components Source Medication Medication Date Date Medication? Clinician (SIG) Name Name vitamin Yes Take by [facility] B-12 100 5-13 mouth. ity of mcg tablet 15:08: [address] Branch vitamin C Yes 1000mg Take [...] 5-13 mouth. ity of mcg tablet 15:08: [address] vitamin C Yes 1000mg Take 1,000 Univers with jillian 5-13 mg by ity of hips 1,000 15:08: mouth. [place] mg tablet 10 Medical Branch Cholecalcif 2020-0 Yes 5000U Take 5,000 Univers marisol, 5-13 Units by ity of Vitamin D3, 15:08: [place]. [place] 125 mcg 10 Medical (5,000 Branch unit) tablet diclofenac 0 Yes [id number] 75mg Take 1 U nivers 75 mg EC 5-13 tablet by ity of tablet 00:00: mouth 2 [place] (two) Medical times Branch daily with meals. diclofenac 2020-0 Yes [id number] 75mg Take 1 U nivers 75 mg EC 5-13 tablet by ity of tablet 00:00: mouth 2 [place] (two) Medical times Branch daily with meals. amLODIPine 2020-0 Yes 5mg Take 5 mg Un ag[place] 5 mg tablet 4-09 by mouth ity of 00:00: daily. [place] [facility] Branch amLODIPine 2020-0 Yes 5mg Take 5 mg Un [place] 5 mg tablet 4-09 by mouth ity of 00:00: daily. [address] Branch Aspirin 81 2020-0 Yes 81 mg = 1 Me moria MG Enteric 1-17 tab, PO, l Coated 21:24: Daily, # [place] Tablet 00 30 tab, 3 Refill(s), other Aspirin 81 2020-0 Yes 81 mg = 1 Me moria MG Enteric 1-17 tab, PO, l Coated 21:24: Daily, # Main Tablet 00 30 tab, 3 Refill(s), other Aspirin 81 2020-0 Yes 81 mg = 1 Me moria MG Enteric 1-17 tab, PO, l Coated 21:24: Daily, # [place] Tablet 00 30 tab, 3 Refill(s), other Aspirin 81 2020-0 Yes 81 mg = 1 Me moria MG Enteric 1-17 tab, PO, l Coated 21:24: Daily, # [place] Tablet 00 30 tab, 3 Refill(s), other Aspirin 81 2020-0 Yes 81 mg = 1 Me moria MG Enteric 1-17 tab, PO, l Coated 21:24: Daily, # Main Tablet 00 30 tab, 3 Refill(s), other Aspirin 81 2020-0 Yes 81 mg = 1 Me moria MG Enteric 1-17 tab, PO, l Coated 21:24: Daily, # Main Tablet 00 30 tab, 3 Refill(s), other Hydrochloro 2020-0 Yes 1 tab, PO, Memoria thiazide 1-17 BID, 0 l 12.5 MG / 20:43: Refill(s) Her maverick Lisinopril 00 20 MG Oral Tablet Amlodipine 2020-0 Yes 5 mg = 1 Mem oria 5 MG Oral 1-17 tab, PO, l Tablet 20:43: Daily, 0 Main [Norvasc] 00 Refill(s) Alprazolam 2020-0 Yes 0.5 mg = 1 M emoria 0.5 MG Oral 1-17 tab, PO, l Tablet 20:43: TID, 0 [place] [Xanax] 00 Refill(s) carvedilol 2020-0 Yes 3.125 mg = M emoria 3.13 MG 1-17 1 tab, PO, l Oral Tablet 20:43: BID, # 60 H ermann [Coreg] 00 tab, 0 Refill(s) bumetanide 2020-0 Yes 1 mg = 1 Mem oria 1 mg oral 1-17 tab, PO, l tablet 20:43: Daily, 0 Main 00 Refill(s) Hydrochloro 2020-0 Yes 1 tab, PO, Memoria thiazide 1-17 BID, 0 l 12.5 MG / 20:43: Refill(s) Her maverick Lisinopril 00 20 MG Oral Tablet Amlodipine 2020-0 Yes 5 mg = 1 Mem oria 5 MG Oral 1-17 tab, PO, l Tablet 20:43: Daily, 0 Main [Norvasc] 00 Refill(s) Alprazolam 2020-0 Yes 0.5 mg = 1 M emoria 0.5 MG Oral 1-17 tab, PO, l Tablet 20:43: TID, 0 Main [Xanax] 00 Refill(s) carvedilol 2020-0 Yes 3.125 mg = M emoria 3.13 MG 1-17 1 tab, PO, l Oral Tablet 20:43: BID, # 60 H [place] [Coreg] 00 tab, 0 Refill(s) bumetanide 2020-0 Yes 1 mg = 1 Mem oria 1 mg oral 1-17 tab, PO, l tablet 20:43: Daily, 0 Main 00 Refill(s) Hydrochloro 2020-0 Yes 1 tab, PO, Memoria thiazide 1-17 BID, 0 l 12.5 MG / 20:43: Refill(s) Her temple Lisinopril 00 20 MG Oral Tablet Amlodipine 2020-0 Yes 5 mg = 1 Mem oria 5 MG Oral 1-17 tab, PO, l Tablet 20:43: Daily, 0 Main [Norvasc] 00 Refill(s) Alprazolam 2020-0 Yes 0.5 mg = 1 M emoria 0.5 MG Oral 1-17 tab, PO, l Tablet 20:43: TID, 0 Main [Xanax] 00 Refill(s) carvedilol 2020-0 Yes 3.125 mg = M emoria 3.13 MG 1-17 1 tab, PO, l Oral Tablet 20:43: BID, # 60 H [place] [Coreg] 00 tab, 0 Refill(s) bumetanide 2020-0 Yes 1 mg = 1 Mem oria 1 mg oral 1-17 tab, PO, l tablet 20:43: Daily, 0 [place] 00 Refill(s) Hydrochloro 2020-0 Yes 1 tab, PO, Memoria thiazide 1-17 BID, 0 l 12.5 MG / 20:43: Refill(s) Her temple Lisinopril 00 20 MG Oral Tablet Amlodipine 2020-0 Yes 5 mg = 1 Mem oria 5 MG Oral 1-17 tab, PO, l Tablet 20:43: Daily, 0 Main [Norvasc] 00 Refill(s) Alprazolam 2020-0 Yes 0.5 mg = 1 M emoria 0.5 MG Oral 1-17 tab, PO, l Tablet 20:43: TID, 0 Main [Xanax] 00 Refill(s) carvedilol 2020-0 Yes 3.125 mg = M emoria 3.13 MG 1-17 1 tab, PO, l Oral Tablet 20:43: BID, # 60 H [place] [Coreg] 00 tab, 0 Refill(s) bumetanide 2020-0 Yes 1 mg = 1 Mem oria 1 mg oral 1-17 tab, PO, l tablet 20:43: Daily, 0 Main 00 Refill(s) Hydrochloro 2020-0 Yes 1 tab, PO, Memoria thiazide 1-17 BID, 0 l 12.5 MG / 20:43: Refill(s) Her temple Lisinopril 00 20 MG Oral Tablet Amlodipine 2020-0 Yes 5 mg = 1 Mem oria 5 MG Oral 1-17 tab, PO, l Tablet 20:43: Daily, 0 Main [Norvasc] 00 Refill(s) Alprazolam 2020-0 Yes 0.5 mg = 1 M emoria 0.5 MG Oral 1-17 tab, PO, l Tablet 20:43: TID, 0 Main [Xanax] 00 Refill(s) carvedilol 2020-0 Yes 3.125 mg = M emoria 3.13 MG 1-17 1 tab, PO, l Oral Tablet 20:43: BID, # 60 H [place] [Coreg] 00 tab, 0 Refill(s) bumetanide 2020-0 Yes 1 mg = 1 Mem oria 1 mg oral 1-17 tab, PO, l tablet 20:43: Daily, 0 Main 00 Refill(s) Hydrochloro 2020-0 Yes 1 tab, PO, Memoria thiazide 1-17 BID, 0 l 12.5 MG / 20:43: Refill(s) Her temple Lisinopril 00 20 MG Oral Tablet Amlodipine 2020-0 Yes 5 mg = 1 Mem oria 5 MG Oral 1-17 tab, PO, l Tablet 20:43: Daily, 0 [place] [Norvasc] 00 Refill(s) Alprazolam 2020-0 Yes 0.5 mg = 1 M emoria 0.5 MG Oral 1-17 tab, PO, l Tablet 20:43: TID, 0 Main [Xanax] 00 Refill(s) carvedilol 2020-0 Yes 3.125 mg = M emoria 3.13 MG 1-17 1 tab, PO, l Oral Tablet 20:43: BID, # 60 H [place] [Coreg] 00 tab, 0 Refill(s) bumetanide 2020-0 Yes 1 mg = 1 Mem oria 1 mg oral 1-17 tab, PO, l tablet 20:43: Daily, 0 Main 00 Refill(s) bumetanide 2016-0 Yes 1mg Take 1 mg Un agnes 1 mg tablet - by mouth ity of 22:32: daily. [address] bumetanide 2017-0 Yes 1mg Take 1 mg Un agnes 1 mg tablet 1-31 by mouth ity of 22:32: daily. [address] nitroglycer Yes .4mg Place 1 Uni vers [...] ESTRIL) 40 00:00: [place] mg tablet 00 [facility] lisinopril 2015-08 Yes 80mg 80 mg Univer s (PRINIVIL,Z 0-20 daily. ity of ESTRIL) 40 00:00: [place] mg tablet 00 [facility] ALPRAZolam Yes .5mg 0.5 mg at Un agnes (XANAX) 0.5 9-03 bedtime. ity of mg tablet 00:00: [place] [facility] ALPRAZolam Yes .5mg 0.5 mg at Un agnes (XANAX) 0.5 9-03 bedtime. ity of mg tablet 00:00: [address] Vital Signs Vital Name Observation Time Observation Value Comments Source Heart rate 2021-01-06 15:04:00 80 /min [facility] Body height 2021-01-06 15:04:00 157.5 cm [facility] Body weight 2021-01-06 15:04:00 88.451 kg [facility] BMI 2021-01-06 15:04:00 35.67 kg/m2 [facility] Systolic (mm Hg) 2019-10-14 17:51:00 [place] rial [place] Diastolic (mm Hg) 2019-10-14 17:51:00 Mem orial Main Heart Rate 2019-10-14 17:51:00 [facility] Main Height 2019-10-14 17:51:00 165.1 cm [facility] Main Weight 2019-10-14 17:51:00 [facility] Main BMI Calculated 2019-10-14 17:51:00 Memori al Main Systolic (mm Hg) 2019-09-12 20:40:00 [place] Main Diastolic (mm Hg) 2019-09-12 20:40:00 Mem orial Main Heart Rate 2019-09-12 20:40:00 [facility] [place] Respitory Rate 2019-09-12 20:40:00 Memori al Main Height 2019-09-12 20:40:00 157.48 cm [facility] [place] Weight 2019-09-12 20:40:00 [facility] Main BMI Calculated 2019-09-12 20:40:00 Memori al Main Procedures This patient has no known procedures. Encounters Start End Encounter Admission Attending Care Care Encounter Source Date/Time Date/Time Type Type Clinicians Facility Department ID 2021-01-06 2021-01-06 Office Nilson WAMATILDE [id number] Univers 09:53:24 10:21:31 Visit Riaz [facility] [id number] it y of Surgical [id number] Rudy as [id number] dical es 198 Branch [place] 2021-01-06 2021-01-06 Outpatient R NILSON WAMATILDE [facility] [id number] Univers 10:00:00 10:00:[address] [facility] 2020-01-13 2020-01-13 Ambulatory nullFlavo MNA [id number] Memoria 16:45:00 16:45:00 Pre-Reg r Neurology 02 l Mitzi Quach 2020-01-13 2020-01-13 Ambulatory nullFlavo MNA [id number] Memoria 16:45:00 16:45:00 Pre-Reg r Neurology 02 l Mitzi Quach 2020-01-13 2020-01-13 Outpatient MHIE MHIE [id number] Memoria 11:45:00 11:45:00 02 l Main 2020-01-13 2020-01-13 Outpatient Kyle MHMISCHER MHMISCHER [id number] 11:45:00 11:45:00 Jim 02 Roe 2019-10-14 2019-10-15 Outpatient nullFlavo MNA [id number] Memoria 17:45:00 05:59:59 r Neurology 01 l Owen [place] 2019-10-14 2019-10-15 Outpatient nullFlavo MNA [id number] Memoria 17:45:00 05:59:59 r Neurology 01 l [place] Main 2019-10-14 2019-10-14 [facility] [id number] 11:45:00 23:59:59 Jim 01 Roe 2019-10-14 2019-10-14 Outpatient MHIE MHIE [id number] Memoria 11:45:00 11:45:00 01 l Main 2019-09-12 2019-09-13 Outpatient nullFlavo MNA [id number] Memoria 20:30:00 05:59:59 r Neurology 00 l [place] Main 2019-09-12 2019-09-13 Outpatient nullFlavo MNA [id number] Memoria 20:30:00 05:59:59 r Neurology 00 l Owen [place] 2019-09-12 2019-09-12 Outpatient BERTHA WrightNMSCHER MISCHER [id number] 14:30:00 23:59:59 Jim 00 Roe 2019-09-12 2019-09-12 Outpatient MHIE MHIE [id number] Memoria 14:30:00 14:30:00 00 l Main Results This patient has no known results.
--- NOTE | 2023-02-24 09:27 | ER ---
Nurse's Notes [facility] [place] Name: Ольга Cantrell Age: 87 yrs Sex: Female : 1935 Arrival Date: 02/24/2023 Time: 09:07 Bed 14 Private MD: Diagnosis: Encounter for change or removal of surgical wound dressing Presentation: 02/24 09:15 Chief complaint: Patient states: had cancer spot removed from top of head by Dr. ryan Mendoza yesterday. Daughter is concerned because the dressing is stuck on the top of her head and she is worried it may bleed. Coronavirus screen: Client denies travel out of the [place] in the last 14 days. Ebola Screen: Patient denies exposure to infectious person. Patient denies travel to an Ebola-affected area in the 21 days before illness onset. Initial Sepsis Screen: Does the patient meet any 2 criteria? No. Patient's initial sepsis screen is negative. Does the patient have a suspected source of infection? No. Patient's initial sepsis screen is negative. Risk Assessment: Do you want to hurt yourself or someone else? Patient reports no desire to harm self or others. Onset of symptoms was February 24, 2023. 09:15 Method Of Arrival: Ambulatory ss 09:15 Acuity: NORM 3 ss Historical: - Allergies: 09:16 Sulfa (Sulfonamide Antibiotics); ss - PMHx: 09:16 lymphedema; aortic aneurysm; ibs; Atrial fibrillation; Pancreatitis; pulmonary HTN; ss Diverticulitis; Hypertension; RLS; - PSHx: 09:16 Appendectomy; back sx; Cholecystectomy; hysterectomy; knee replacement; Cancer removed ss from top of head; - Family history:: not pertinent. - Hospitalizations: : No recent hospitalization is reported. Screenin:41 [facility] ED Fall Risk Assessment (Adult) History of falling in the last 3 months, kc6 including since admission No falls in past 3 months (0 pts) Confusion or Disorientation No (0 pts) Intoxicated or Sedated No (0 pts) Impaired Gait No (0 pts) Mobility Assist Device Used Yes (1 pt) Altered Elimination No (0 pt) Score/Fall Risk Level 0 - 2 = Low Risk Oriented to surroundings, Maintained a safe environment, Educated pt \T\ family on fall prevention, incl call for assistance when getting out of bed, Assessed \T\ reinforced patient's understanding of fall precautions, Hourly rounding (assess needs \T\ fall precautionary measures) done. Abuse screen: Denies threats or abuse. Denies injuries from another. Nutritional screening: No deficits noted. Tuberculosis screening: No symptoms or risk factors identified. Assessment: 09:38 General: Appears in no apparent distress. comfortable, Behavior is calm, cooperative, kc6 appropriate for age. Pain: Denies pain. Neuro: Level of Consciousness is awake, alert, obeys commands, Oriented to person, place, time, situation, Appropriate for age. Cardiovascular: Capillary refill < 3 seconds. Respiratory: Airway is patent Trachea midline Respiratory effort is even, unlabored, Respiratory pattern is regular, symmetrical. GI: No signs and/or symptoms were reported involving the gastrointestinal system. : No signs and/or symptoms were reported regarding the genitourinary system. EENT: No signs and/or symptoms were reported regarding the EENT system. Derm: Skin is healthy with good turgor, Skin is dry, Skin is pink, warm \T\ dry. Skin temperature is warm Wound noted scalp Wound is covered in a gauze dressing, appears to be saturated with blood. upon inspection, wound is clean with minimal bleeding. new gauze dressing applied, clean, dry, and intact. Musculoskeletal: No signs and/or symptoms reported regarding the musculoskeletal system. Circulation, motion, and sensation intact. Capillary refill < 3 seconds, Range of motion: intact in all extremities. Vital Signs: 09:37 BP 150 / 81; Pulse 63; Resp 19 S; Temp 97.6(O); Pulse Ox 98% on R/A; Pain 0/10; kc6 09:37 Pain Scale: Adult kc6 ED Course: 09:08 Patient arrived in ED. ts1 09:08 Renaldo Moreno MD is Attending Physician. rn 09:11 Samreen Chappell RN is Primary Nurse. kc6 09:16 Triage completed. ss 09:16 Arm band placed on right wrist. ss 09:41 Patient has correct armband on for positive identification. Bed in low position. Call kc6 light in reach. Side rails up X 1. Adult w/ patient. 09:41 No provider procedures requiring assistance completed. Patient did not have IV access kc6 during this emergency room visit. Administered Medications: No medications were administered Medication: 09:42 VIS not applicable for this client. kc6 Outcome: :27 Discharge ordered by . rn 09:41 Discharged to home ambulatory, with family. kc6 :41 Condition: stable :41 Discharge instructions given to patient, family, Instructed on discharge instructions, follow up and referral plans. wound care, Demonstrated understanding of instructions, follow-up care, wound care. :42 Patient left the ED. kc6 Signatures: Renaldo Moreno MD MD rn Blanchard, Shelby, RN RN ss Campbell, Kaitlyn, RN RN kc6 Sarah Diego PAS PAS ts1
--- NOTE | 2023-02-24 09:28 | EDPHYS ---
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 09:22 Patient presents to ED for recheck of: skin excision. The affected area is on the rn scalp. Progress: The patient reports excellent improvement in the affected area. There has been resolution, improvement, or non-development of any drainage, fever, pain, redness or swelling. The patient has not experienced similar symptoms in the past. The patient has been recently seen by a physician:. Pt reports Dr. Mendoza performed skin excision for skin cancer yesterday, restarted her xarelto, was told to change dressing on scalp twice a day, but this AM daughter had trouble removing gauze because was stuck to skin. Was scared to remove gauze so came here. . Historical: - Allergies: 09:16 Sulfa (Sulfonamide Antibiotics); ss - PMHx: 09:16 lymphedema; aortic aneurysm; ibs; Atrial fibrillation; Pancreatitis; pulmonary HTN; ss Diverticulitis; Hypertension; RLS; - PSHx: 09:16 Appendectomy; back sx; Cholecystectomy; hysterectomy; knee replacement; Cancer removed ss from top of head; - Family history:: not pertinent. - Hospitalizations: : No recent hospitalization is reported. ROS: 09:22 Constitutional: Negative for fever, chills, and weight loss, Skin: + post surgical pain rn Exam: :22 Constitutional: This is a well developed, well nourished patient who is awake, alert, rn and in no acute distress. Head/Face: Normocephalic, 3 cm diameter shallow post surgical wound on top of scalp, gauze easily removed without bleeding or trauma to wound, tolerated well Vital Signs: 09:37 BP 150 / 81; Pulse 63; Resp 19 S; Temp 97.6(O); Pulse Ox 98% on R/A; Pain 0/10; kc6 09:37 Pain Scale: Adult kc6 MDM: 09:08 Patient medically screened. rn 09:22 Differential diagnosis: post surgical pain, encounter to wound dressing change. Data rn reviewed: vital signs, nurses notes, and as a result, I will discharge patient. Counseling: I had a detailed discussion with the patient and/or guardian regarding: the historical points, exam findings, and any diagnostic results supporting the discharge/admit diagnosis, the need for outpatient follow up, to return to the emergency department if symptoms worsen or persist or if there are any questions or concerns that arise at home. Response to treatment: the patient's symptoms have markedly improved after treatment, and as a result, I will discharge patient. ED course: Dressing easily removed without trauma or bleeding, daughter has number for wound care. . 02/24 09:22 Order name: Wound Care; Complete Time: 09:37 rn 02/24 09:22 Order name: Wound dressing; Complete Time: :37 rn Administered Medications: No medications were administered Disposition Summary: 02/24/23 09:27 Discharge Ordered Location: Home rn Problem: new rn Symptoms: have improved rn Condition: Stable rn Diagnosis - Encounter for change or removal of surgical wound dressing rn Followup: rn - With: Private Physician - When: As needed - Reason: Recheck today's complaints, Re-evaluation by your physician Discharge Instructions: - Discharge Summary Sheet rn - How to Change Your Wound Dressing rn Forms: - Medication Reconciliation Form rn - Thank You Letter rn - Antibiotic rn discharge - Prescription Opioid Use r[facility] - [email or web address] rn Signatures: Renaldo Moreno MD MD rn Blanchard, Shelby, RN RN ss
[2023-02-24 09:47] VITALS: BP 150/81; TEMP 97.6; O2SAT 98
== END 2023-02-24 09:42 | disposition home or self-care (01) ==
LOC: ER 09:07
DX: Z48.01 Encounter for change or removal of surgical wound dressing (principal)
CPT/HCPCS: 99282

== ENCOUNTER 2023-07-12 11:03 | Emergency (ER) | payer OTHER ==
--- OUTSIDE RECORDS SUMMARY | 2023-07-12 11:07 | XMS REPORT | Continuity of Care Document ---
:1935 Author Organization [facility] Address [address] [facility] [address] [place] [id number] Care Team Providers Name Role Phone Riaz [...] Memoria ischemic ischemic 21:39:51 l attack attack [place] (disorder) (disorder) Active Problem 01/15/2020 [facility] [...] used Universit y of exposure 00:00:00 00:00:00 [facility] Alcohol intake 2021-01-06 2021-01-06 Lifetime University of 00:00:00 00:00:00 non-drinker [facility] (finding) Branch Sex Ass[birth year] At [birth year] Universit [facility] of 00:00:00 00:00:00 [facility] Smoking Status Start Date Stop Date Source Social History [facility] Main Medications Ordered Filled Start Stop Current Ordering Indication Dosage Frequency Signature Comments Components Source Medication Medication Date Date Medication? Clinician (SIG) Name Name vitamin Yes Take by [facility] B-12 100 5-13 mouth. ity of mcg tablet 15:08: [address] Branch vitamin C Yes 1000mg Take [...] 5-13 mouth. ity of mcg tablet 15:08: [address] vitamin C Yes 1000mg Take 1,000 Univers with jillian 5-13 mg by ity of hips 1,000 15:08: mouth. [place] mg tablet 10 Medical Branch Cholecalcif 0 Yes 5000U Take 5,000 Univers marisol, 5-13 Units by ity of Vitamin D3, 15:08: [place] 125 [place] 10 Medical (5,000 Branch unit) tablet diclofenac Yes [id number] 75mg Take 1 U nivers 75 mg EC 5-13 tablet by ity of tablet 00:00: mouth 2 [place] (two) Medical times Branch daily with meals. diclofenac Yes [id number] 75mg Take 1 U nivers 75 mg EC 5-13 tablet by ity of tablet 00:00: mouth 2 [place] (two) Medical times Branch daily with meals. amLODIPine 0 Yes 5mg Take 5 mg Un agnes 5 mg tablet 4-09 by mouth ity of 00:00: daily. [place] [facility] Branch amLODIPine 2020-0 Yes 5mg Take 5 mg Un agnes 5 mg tablet 4-09 by mouth ity of 00:00: daily. [address] Branch Aspirin 81 2020-0 Yes 81 mg = 1 Me moria MG Enteric 1-17 tab, PO, l Coated 21:24: Daily, # [place] Tablet 00 30 tab, 3 Refill(s), other [...] tab, PO, l Tablet 20:43: Daily, 0 [place] [Norvasc] 00 Refill(s) Alprazolam 2020-0 Yes 0.5 mg = 1 M emoria 0.5 MG Oral 1-17 tab, PO, l Tablet 20:43: TID, 0 Main [Xanax] 00 Refill(s) carvedilol 2020-0 Yes 3.125 mg = M emoria 3.13 MG 1-17 1 tab, PO, l Oral Tablet 20:43: BID, # 60 [place] [Coreg] 00 tab, 0 Refill(s) Hydrochloro 2020-0 Yes 1 tab, PO, Memoria thiazide 1-17 BID, 0 l 12.5 MG / 20:43: Refill(s) Her maverick Lisinopril 00 20 MG Oral Tablet bumetanide 2020-0 Yes 1 mg = 1 Mem oria 1 mg oral 1-17 tab, PO, l tablet 20:43: Daily, 0 [place] 00 Refill(s) Amlodipine 2020-0 Yes 5 mg = 1 Mem oria 5 MG Oral 1-17 tab, PO, l Tablet 20:43: Daily, 0 [place] [Norvasc] 00 Refill(s) Alprazolam 2020-0 Yes 0.5 [...] tab, PO, l Tablet 20:43: Daily, 0 [place] [Norvasc] 00 Refill(s) Alprazolam 2020-0 Yes 0.5 [...] tab, PO, l Tablet 20:43: TID, 0 [place] [Xanax] 00 Refill(s) carvedilol 2020-0 Yes 3.125 mg = M emoria 3.13 MG 1-17 1 tab, PO, l Oral Tablet 20:43: BID, # 60 [place] [Coreg] 00 tab, 0 Refill(s) bumetanide 2020-0 Yes 1 mg = 1 Mem oria 1 mg oral 1-17 tab, PO, l tablet 20:43: Daily, 0 [place] 00 Refill(s) Hydrochloro 2020-0 Yes 1 tab, PO, Memoria thiazide 1-17 BID, 0 l 12.5 MG / 20:43: Refill(s) Her temple Lisinopril 00 20 MG Oral Tablet Amlodipine 2020-0 Yes 5 mg = 1 Mem oria 5 MG Oral 1-17 tab, PO, l Tablet 20:43: Daily, 0 [place] [Norvasc] 00 Refill(s) Alprazolam 2020-0 Yes 0.5 [...] tab, PO, l Tablet 20:43: Daily, 0 [place] [Norvasc] 00 Refill(s) Alprazolam Yes 0.5 mg = 1 M emoria 0.5 MG Oral 1-17 tab, PO, l Tablet 20:43: TID, 0 [place] [Xanax] 00 Refill(s) carvedilol Yes 3.125 mg = M emoria 3.13 MG 1-17 1 tab, PO, l Oral Tablet 20:43: BID, # 60 [place] [Coreg] 00 tab, 0 Refill(s) bumetanide Yes 1 mg = 1 Mem oria 1 mg oral 1-17 tab, PO, l tablet 20:43: Daily, 0 [place] 00 Refill(s) bumetanide Yes 1mg Take 1 mg Un agnes 1 mg tablet 1-31 by mouth ity of 22:32: daily. [address] bumetanide Yes 1mg Take 1 mg Un agnes 1 mg tablet 1-31 by mouth ity of 22:32: daily. [address] nitroglycer Yes .4mg Place 1 Uni [...] Yes 3.125mg 3.125 mg 2 Univers (COREG) -19 (two) ity of 3.125 mg 00:00: times [place] tablet 00 daily with Medical meals. Branch carvedilol 2015-08 Yes 3.125mg 3.125 mg 2 Univers (COREG) -19 (two) ity of 3.125 mg 00:00: times [place] tablet 00 daily with Medical meals. Branch lisinopril 2015-08 Yes 80mg 80 mg Univer s (PRINIVIL,Z 0-20 daily. ity of ESTRIL) 40 00:00: [place] mg tablet 00 Medical Irene lisinopril 2015-08 Yes 80mg 80 mg Univer s (PRINIVIL,Z 0-20 daily. ity of ESTRIL) 40 00:00: [place] mg tablet 00 [facility] ALPRAZolam Yes .5mg 0.5 mg at Un agnes (XANAX) 0.5 9 bedtime. ity of mg tablet 00:00: [place] [facility] ALPRAZolam Yes .5mg 0.5 mg at Un agnes (XANAX) 0.5 9 bedtime. ity of mg tablet 00:00: [address] Vital Signs Vital Name Observation Time Observation Value Comments Source Heart rate 2021-01-06 15:04:00 80 /min [facility] Body height 2021-01-06 15:04:00 157.5 cm [facility] Body weight 2021-01-06 15:04:00 88.451 kg [facility] BMI 2021-01-06 15:04:00 35.67 kg/m2 [facility] Systolic (mm Hg) 2019-10-14 17:51:00 [place] Main Diastolic (mm Hg) 2019-10-14 17:51:00 Mem orial Main Heart Rate 2019-10-14 17:51:00 [facility] Main Height 2019-10-14 17:51:00 165.1 cm [facility] Weight 2019-10-14 17:51:00 [facility] BMI Calculated 2019-10-14 17:51:00 Memori al [place] Systolic (mm Hg) 2019-09-12 20:40:00 [place] Diastolic (mm Hg) 2019-09-12 20:40:00 Mem orial Main Heart Rate 2019-09-12 20:40:00 [facility] Respitory Rate 2019-09-12 20:40:00 Memori al Main Height 2019-09-12 20:40:00 157.48 cm [facility] Weight 2019-09-12 20:40:00 [facility] BMI Calculated 2019-09-12 20:40:00 Luis Tamayo Procedures This patient has no known procedures. Encounters Start End Encounter Admission Attending Care Care Encounter Source Date/Time Date/Time Type Type Clinicians Facility Department ID 2021-01-06 2021-01-06 Office Castro, [facility] [id number] Univers 09:53:24 10:21:31 Visit Riaz [facility] [id number] it y of Surgical [id number] Rudy as Specialti [id number] [place] dical es [address] Branch [place] 2021-01-06 2021-01-06 Outpatient R [facility] [id number] Univers 10:00:00 10:00:00 RIAZ [facility]field [facility] 2020-01-13 2020-01-13 Ambulatory nullFlavo MNA [id number] Memoria 16:45:00 16:45:00 Pre-Reg r Neurology 02 l Mitzi Quach 2020-01-13 2020-01-13 Ambulatory nullFlavo MNA [id number] Memoria 16:45:00 16:45:00 Pre-Reg r Neurology 02 l Mitzi Quach 2020-01-13 2020-01-13 Outpatient MHIE MHIE [id number] Memoria 11:45:00 11:45:00 02 shravan Quach 2020-01-13 2020-01-13 Outpatient ARNOLD WrightSCHER MHMISCHER [id number] 11:45:00 11:45:00 Jim 02 Reo 2019-10-14 2019-10-15 Outpatient nullFlavo MNA [id number] Memoria 17:45:00 05:59:59 r Neurology 01 l Mitzi Quach 2019-10-14 2019-10-15 Outpatient nullFlavo MNA [id number] Memoria 17:45:00 05:59:59 r Neurology 01 l Mitzi Quach 2019-10-14 2019-10-14 Outpatient BERTHA WrightMISCHER MHMISCHER [id number] 11:45:00 23:59:59 Jim 01 Roe 2019-10-14 2019-10-14 Outpatient MHIE MHIE [id number] Memoria 11:45:00 11:45:00 01 shravan Quach 2019-09-12 2019-09-13 Outpatient nullFlavo MNA [id number] Memoria 20:30:00 05:59:59 r Neurology 00 l Mitzi Quach 2019-09-12 2019-09-13 Outpatient nullFlavo MNA [id number] Memoria 20:30:00 05:59:59 r Neurology 00 l Mitzi Quach 2019-09-12 2019-09-12 Outpatient Kyle [facility] [id number] 14:30:00 23:59:59 Jim 00 Roe 2019-09-12 2019-09-12 Outpatient MHIE MHIE [id number] Memoria 14:30:00 14:30:00 00 shravan Quach Results This patient has no known results.
[2023-07-12 14:10] LABS: Absolute Lymphocytes (CBC) 2.2 K/uL (0.7-4.9); Hematocrit 39.2 % (36.0-45.0); Lymphocytes % 26.5 % (15.3-44.8); MCV 88.1 fL (80-100); MPV 7.7 fL (7.6-11.3); Platelets 226 thou/uL (152-406); RBC Red Blood Cell Count 4.45 M/uL (3.86-4.86)
[2023-07-12 14:17] LABS: Potassium 3.6 mEq/L (3.5-5.1)
--- NOTE | 2023-07-12 14:37 | ER ---
Nurse's Notes [facility] Name: Ольга Cantrell Age: 88 yrs Sex: Female : 1935 Arrival Date: 07/12/2023 Time: 11:03 Bed 12 Private MD: Diagnosis: Abdominal pain, Generalized Presentation: 07/12 11:15 Chief complaint: Patient states: Abdominal scar itching and pain for months. ll1 Coronavirus screen: Vaccine status: Patient reports receiving the 2nd dose of the covid vaccine. Client denies travel out of the [place] in the last 14 days. At this time, the client does not indicate any symptoms associated with coronavirus-19. Ebola Screen: Patient denies travel to an Ebola-affected area in the 21 days before illness onset. Initial Sepsis Screen: Does the patient meet any 2 criteria? No. Patient's initial sepsis screen is negative. Does the patient have a suspected source of infection? Yes: Skin breakdown/wound. Risk Assessment: Do you want to hurt yourself or someone else? Patient reports no desire to harm self or others. Onset of symptoms was April 27, 2023. 11:15 Method Of Arrival: Ambulatory ll1 11:15 Acuity: NORM 5 ll1 Triage Assessment: 11:15 General: Appears in no apparent distress. Behavior is calm, cooperative, appropriate ll1 for age. Pain: Complains of pain in mid abdomen old surgical scar Pain currently is 6 out of 10 on a pain scale. Quality of pain is described as aching. Derm: Reports itching, pain to mid abdominal pain old scarline. Historical: - Allergies: 11:14 Sulfa (Sulfonamide Antibiotics); ll1 - PMHx: 11:14 lymphedema; Hypertension; Atrial fibrillation; aortic aneurysm; RLS; pulmonary HTN; ll1 ibs; Diverticulitis; Pancreatitis; - PSHx: 11:14 Appendectomy; Cancer removed from top of head; back sx; Cholecystectomy; hysterectomy; ll1 knee replacement; - Immunization history:: Adult Immunizations up to date. - Social history:: Smoking status: Patient denies any tobacco usage or history of. Screenin:34 [facility] ED Fall Risk Assessment (Adult) Score/Fall Risk Level 0 - 2 = Low Risk ll1 Oriented to surroundings, Maintained a safe environment, Educated pt \T\ family on fall prevention, incl call for assistance when getting out of bed, Hourly rounding (assess needs \T\ fall precautionary measures) done. Abuse screen: Denies threats or abuse. Nutritional screening: No deficits noted. Tuberculosis screening: No symptoms or risk factors identified. Assessment: 12:17 Reassessment: Patient appears in no apparent distress at this time. No changes from 1 previously documented assessment. Patient and/or family updated on plan of care and expected duration. Pain level reassessed. Patient is alert, oriented x 3, equal unlabored respirations, skin warm/dry/pink. Vital Signs: 11:15 BP 151 / 80; Pulse 55; Resp 17; Temp 97.7; Pulse Ox 100% ; Weight 81.65 kg; Height 5 ll1 ft. 0 in. ; Pain 7/10; 12:17 BP 146 / 76; Pulse 59; Resp 16; Pulse Ox 100% on R/A; ld1 11:15 Body Mass Index 35.15 (81.65 kg, 152.4 cm) 1 11:15 Pain Scale: Adult [facility] ED Course: 11:07 Patient arrived in ED. im 11:16 Triage completed. 1 11:16 Leela Carrasquillo FNP is PHCP. [facility] 11:16 Pj Delarosa MD is Attending Physician. [facility] 11:16 Arm band placed on Patient placed in an exam room, on a stretcher. 1 11:34 Patient has correct armband on for positive identification. Bed in low position. Call [facility] light in reach. Cardiac monitoring not applicable on this patient. 11:34 Provided Education on: ER process and procedures. 1 11:34 No provider procedures requiring assistance completed. ll1 11:53 BMP Sent. ll1 11:53 CBC with Diff Sent. ll1 12:17 Kandis Dasilva, ELIDA is Primary Nurse. ld1 13:40 Missed attempt(s): 20 gauge in right antecubital area. ld1 13:41 Missed attempt(s): 22 gauge in right forearm. ld1 13:54 Inserted saline lock: 24 gauge in right forearm, using aseptic technique. ds4 13:57 Inserted saline lock: 24 gauge in left forearm, using aseptic technique. Blood ds4 collected. 15:05 IV discontinued, intact, bleeding controlled, No redness/swelling at site. ld1 Administered Medications: No medications were administered Medication: 11:35 VIS not applicable for this client. ll1 Outcome: 14:36 Discharge ordered by . renzo 15:04 Discharged to home ambulatory, ld1 15:04 Condition: stable 15:04 Discharge instructions given to patient, Instructed on discharge instructions, follow up and referral plans. medication usage, Demonstrated understanding of instructions, follow-up care, medications, Prescriptions given X 1, 15:05 Patient left the ED. ld1 Signatures: Gavin Lim ds4 Olga Babin RN RN 1 Kandis Dasilva RN RN ld1 Leela Carrasquillo, MOTOR VEHICLE LIGHT ASSEMBLER MOTOR VEHICLE LIGHT ASSEMBLER jh7 Charla Fernández
--- NOTE | 2023-07-12 14:37 | EDPHYS ---
Physician Documentation [facility] Name: Ольга Cantrell Age: 88 yrs Sex: Female : 1935 Arrival Date: 07/12/2023 Time: 11:03 Bed 12 Private MD: ED Physician Pj Delarosa HPI: 07/12 11:15 This 88 yrs old Female presents to ER via Ambulatory with complaints of Old surgical jh7 incison itch and pain. 11:15 Onset: The symptoms/episode began/occurred 5 month(s) ago. Associated signs and jh7 symptoms: Pertinent positives: abdominal pain, Pertinent negatives: chest pain, constipation, fever, shortness of breath, vomiting. Patient reports itching and abdominal pain over an incision where she had plastic surgery on her abdomen over 10 years ago. She reports that over the past 5 months, the pain is felt deeper than just her incision. She denies fever, nausea, vomiting, diarrhea, or constipation. Also reports history of a hysterectomy and cholecystectomy. Reports that she is a patient of Dr. Chauhan and came to the ER because he could not see her today.. Historical: - Allergies: 11:14 Sulfa (Sulfonamide Antibiotics); ll1 - PMHx: 11:14 lymphedema; Hypertension; Atrial fibrillation; aortic aneurysm; RLS; pulmonary HTN; ll1 ibs; Diverticulitis; Pancreatitis; - PSHx: 11:14 Appendectomy; Cancer removed from top of head; back sx; Cholecystectomy; hysterectomy; ll1 knee replacement; - Immunization history:: Adult Immunizations up to date. - Social history:: Smoking status: Patient denies any tobacco usage or history of. ROS: 11:15 Constitutional: Negative for fever, chills, and weight loss, Eyes: Negative for injury, jh7 pain, redness, and discharge, Neck: Negative for injury, pain, and swelling, Cardiovascular: Negative for chest pain, palpitations, and edema, Respiratory: Negative for shortness of breath, cough, wheezing, and pleuritic chest pain, Back: Negative for injury and pain, MS/Extremity: Negative for injury and deformity, Skin: Negative for injury, rash, and discoloration, Neuro: Negative for headache, weakness, numbness, tingling, and seizure, 11:15 Abdomen/GI: Positive for abdominal pain, Negative for nausea, vomiting, and diarrhea, constipation, abdominal distension, dysphagia, hematemesis, black/tarry stool, rectal pain, rectal bleeding, 11:15 All other systems are negative, Exam: 11:15 Constitutional: This is a well developed, well nourished patient who is awake, alert, jh7 and in no acute distress. Head/Face: Normocephalic, atraumatic. Eyes: Pupils equal round and reactive to light, extra-ocular motions intact. Lids and lashes normal. Conjunctiva and sclera are non-icteric and not injected. Cornea within normal limits. Periorbital areas with no swelling, redness, or edema. Neck: Trachea midline, no thyromegaly or masses palpated, and no cervical lymphadenopathy. Supple, full range of motion without nuchal rigidity, or vertebral point tenderness. No Meningismus. Cardiovascular: Regular rate and rhythm with a normal S1 and S2. No gallops, murmurs, or rubs. Normal PMI, no JVD. No pulse deficits. Respiratory: Lungs have equal breath sounds bilaterally, clear to auscultation and percussion. No rales, rhonchi or wheezes noted. No increased work of breathing, no retractions or nasal flaring. Abdomen/GI: Soft, non-tender, with normal bowel sounds. No distension or tympany. No guarding or rebound. No evidence of tenderness throughout. Back: No spinal tenderness. No costovertebral tenderness. Full range of motion. MS/ Extremity: Pulses equal, no cyanosis. Neurovascular intact. Full, normal range of motion. Neuro: Awake and alert, GCS 15, oriented to person, place, time, and situation. Motor strength 5/5 in all extremities. Sensory grossly intact. Normal gait. 11:15 Skin: Vertical surgical scar extending over the entire abdomen with no erythema, tenderness, or any signs of infection.. Vital Signs: 11:15 BP 151 / 80; Pulse 55; Resp 17; Temp 97.7; Pulse Ox 100% ; Weight 81.65 kg; Height 5 ll1 ft. 0 in. ; Pain 7/10; 12:17 BP 146 / 76; Pulse 59; Resp 16; Pulse Ox 100% on R/A; ld1 11:15 Body Mass Index 35.15 (81.65 kg, 152.4 cm) ll1 11:15 Pain Scale: Adult ll1 MDM: 11:16 Patient medically screened. [facility] 14:40 Differential diagnosis: Contact dermatitis, chronic abdominal pain, abdominal jh7 adhesions. Data reviewed: vital signs, nurses notes, lab test result(s). Care significantly affected by the following chronic conditions: Hypertension. Counseling: I had a detailed discussion with the patient and/or guardian regarding the historical points, exam findings, and any diagnostic results supporting the discharge/admit diagnosis, the need for outpatient follow up, a plastic surgeon, to return to the emergency department if symptoms worsen or persist or if there are any questions or concerns that arise at home. Special discussion: Inform the patient that her abdominal itching/pain could be due to abdominal adhesions due to multiple surgeries performed throughout her life. She she denied any nausea, vomiting, constipation, fever, or diarrhea. Advised her to follow-up with her plastic surgeon that performed the procedure 10 years ago and if not able, follow-up with Dr. Joaquin for further care. Offered to prescribe steroid cream to help with the abdominal skin itching but she stated that Dr. Joaquin had already provided her some previously. The patient remained hemodynamically stable and in no distress throughout the ER visit.. 07/12 11:29 Order name: CBC with Diff; Complete Time: 14:36 [facility] 07/12 11:29 Order name: BMP; Complete Time: 14:36 [facility] Administered Medications: No medications were administered Disposition: 15:22 I agree with the assessment and plan of care. kdr Disposition Summary: 07/12/23 14:36 Discharge Ordered Notes: Location: Home [facility] Problem: chronic [facility] Symptoms: are unchanged [facility] Condition: Stable [facility] Diagnosis - Abdominal pain, Generalized [facility] Followup: [facility] - With: Private Physician - When: 2 - 3 days - Reason: Recheck today's complaints Discharge Instructions: - Discharge Summary Sheet [facility] - Abdominal Pain, Adult [facility] - Adhesions [facility] Forms: - Medication Reconciliation Form [facility] - Thank You Letter [facility] - Prescription Opioid Use [facility] - Patient Portal Instructions [facility] - Leadership Thank You Letter [facility] Prescriptions: - Tramadol 50 mg Oral Tablet - take 1 tablet ORAL route every 8 hours as needed; 12 tablet; Refills: 0, jh7 Product Selection Permitted Signatures: Dispatcher [employer] EDPj Sanchez MD MD kdr Lewis, Lynsay, RN RN ll1 Leela Carrasquillo, OSTEOPATHY DOCTOR OSTEOPATHY DOCTOR jh7
[2023-07-12 15:31] VITALS: TEMP 97.7; O2SAT 100
[2023-07-12 15:33] VITALS: BP 146/76
== END 2023-07-12 15:05 | disposition home or self-care (01) ==
LOC: ER 11:03
DX: R10.84 Generalized abdominal pain (principal); I10 Essential (primary) hypertension; Z88.2 Allergy status to sulfonamides
CPT/HCPCS: 36415; 80048; 85025; 99283